=== PATIENT | male | born 1955 | race Caucasian/White ===

== ENCOUNTER 2024-07-04 08:20 | Inpatient (IN) ==
--- NOTE | 2024-07-04 08:48 | Emergency Department Note ---
Impression & Plan Pulmonary embolism, Acute alteration in mental status, Lung mass, Acidosis, lactic ED Provider Note NAME: TARA [id number] SOPHIA AGE: 68 SEX: M : 1955 ARRIVES VIA: Walk-In INFORMANT: Patient, ED PROVIDER(S): Sonu Baez DO CHIEF COMPLAINT: Altered mental status HPI: The patient is a 68-year-old male who presented to the emergency department from [place] for an evaluation of altered mental status. The patient's history is not very clear as he has a history of cognitive impairment. The guards that came with him do not offer much history. We did receive a phone call from [facility]. The paperwork was reviewed and the patient is altered from his baseline. They are concerned because she has had 40 pound weight loss and he is incontinent of bowel and bladder. He does not appear to be taking his medications. They also report a facial droop although it is unclear exactly when this happened. According to the guards there may have been a fall although the patient denies having any fall. He denies having any chest pain or difficulty breathing. He denies having any fever or chills. ROS: See above HPI for pertinent positives & negatives. A total of 10 systems reviewed and were otherwise negative. PAST MEDICAL HISTORY: See Below PAST SURGICAL HISTORY: See Below FAMILY HISTORY: See Below SOCIAL HISTORY: See Below HOME MEDICATIONS: See Below ALLERGIES: See Below VITALS: See Below PHYSICAL EXAMINATION: GENERAL: The patient is awake and alert. He is listless and slow to respond to questioning. EYES: The conjunctivae are clear. The pupils are round and reactive. EARS, NOSE, MOUTH AND THROAT: The nose is without any evidence of any deformity. Mucous membranes are dry. NECK: The neck is nontender and supple. RESPIRATORY: Diminished breath sounds are noted throughout. CARDIOVASCULAR: Regular rate and rhythm noted there no murmurs rubs or gallops normal S1 normal S2. GASTROINTESTINAL: The abdomen is soft. Abdomen is nontender. BACK: No midline tenderness or or step-off noted range of motion in flexion extension as well as rotation no signs of muscle spasm noted MUSCULOSKELETAL/EXTREMITIES: There is no evidence of gross deformity full range of motion is noted in the hips and shoulders. SKIN: There is no obvious evidence of any rash. There are no petechiae, pallor or cyanosis noted. NEUROLOGIC: Patient is awake and oriented to person and place only. Strength was symmetric but diminished. There does appear to be a right-sided facial droop although it is difficult to tell for sure. MEDICAL DECISION MAKING: The patient is a 68-year-old male who presented to the emergency department for an evaluation of altered mental status. The patient does have some degree of underlying dementia. The patient was sent to the emergency department with very little history although we did obtain that the patient's had some degree of weight loss and has been noncompliant with his medications. There was also the guards who thought they heard that the patient may have fallen recently. The patient had multiple laboratory and radiographic studies obtained. He was found to have a large mass on his chest x-ray. He was also found no signs of metastatic disease on CT of the brain. I discussed the patient's laboratory and radiographic studies with him. I discussed his condition with the on-call [facility]. At their request I also discussed the case with oncology as well as neurosurgery. It sounds that the patient may require staging first prior to determining further testing treatment or transfer. He also was found have a pulmonary embolism although I do not feel it would be prudent to start the patient on anticoagulation at this time. His vital signs are stable and anticoagulation may complicate some of the findings on the head CT. Triage Nursing notes reviewed. Prior medical records reviewed Vital Signs: reviewed and remarkable for no significant abnormalities Differential diagnosis: Infection, dehydration, metabolic abnormality, hypo/hyperglycemia, electrolyte disturbance, anemia, hypoxia, cardiac sources, intracerebral event, toxicologic, neurologic, as well as other pathologies. ER treatment provided: See below Diagnostics interpreted by me: ECG: EKG was obtained in the emergency department. My interpretation is sinus tachycardia at 109 bpm. Right bundle branch block pattern was noted. PACs were noted. No previous tracing was available. Cardiac Monitoring: An order was placed for continuous cardiac monitoring. The monitor shows a rate of 86 bpm with sinus rhythm. Laboratory studies: As stated above and show below. Imaging studies: See below. Radiographic imaging was reviewed by myself Consultation(s): I discussed this case with Mamie who is on-call for the [place] [facility] group. I discussed this case with Dr. Dickey who is on-call for oncology. She does recommend that we discussed the case with neurosurgery to determine if they feel the patient requires any neurosurgical intervention. I discussed this case with Dr. Campos who is on for neurosurgery. He does recommend formal tissue diagnosis and then other neuroimaging to determine if this is a radiosensitive tumor or not and that may determine further need for neurosurgery. ED COURSE: Procedures: none Critical Care: I have personally spent greater than 35 minutes of critical care time in the direct management of this patient. This includes bedside care, interpretation of diagnostic studies, and testing, discussion with consultants, patient, and family members, and other required patient management activities. This 35 minutes is in excess of all separately billable procedures. Past Med/Surg History Problem List (Updated 07/04/24 @ 11:30 by Sonu Baez DO) Acidosis, lactic (Acute) Lung mass (Acute) Acute alteration in mental status (Acute) Pulmonary embolism (Acute) Medical History Cognitive impairment Schizoaffective disorder Alcohol use disorder Hyperlipidemia Type 2 diabetes mellitus Social History Smoking Status: Unknown if ever smoked Preferred Language: Mongolian Feels Safe at Home: Yes Allergies Allergies Allergy/AdvReac Type Severity Reaction Status Date / Time fluphenazine Allergy Unknown "On list Unverified 07/04/24 09:24 from facility" Home Meds Home Medications Medication Instructions Recorded Confirmed aspirin 81 mg tablet,delayed 81 mg PO DAILY 07/04/24 07/04/24 release gemfibrozil 600 mg tablet 600 mg PO BID 07/04/24 07/04/24 glipizide 5 mg tablet 5 mg PO HS 07/04/24 07/04/24 lisinopril 5 mg tablet 5 mg PO DAILY 07/04/24 07/04/24 metformin 1,000 mg tablet 1,000 mg PO HS 07/04/24 07/04/24 Results & Data (ED) Vital Signs Vital Signs - 24 hr 07/04/24 08:22 07/04/24 08:52 07/04/24 08:54 Temperature 36.1 C L Temperature Source Temporal Artery Scan Pulse Rate 106 H 103 H Pulse Rate [Apical] Respiratory Rate 17 Respiratory Effort / Characteristics Non-Labored Spontaneous Respiratory Depth Normal Blood Pressure 108/81 Blood Pressure [Right Arm] Blood Pressure Mean 90 Blood Pressure Mean [Right Arm] Pulse Oximetry 98 Oxygen Delivery Method Room Air Room Air Sepsis Recent Fever Within 48 Hours No Sepsis New/Unexplained Change in Mental Status N/A Sepsis Action Taken by Nursing No Action Required 07/04/24 08:54 07/04/24 08:54 07/04/24 08:58 Temperature Temperature Source Pulse Rate Pulse Rate [Apical] 106 H 108 H Respiratory Rate 20 Respiratory Effort / Characteristics Non-Labored Non-Labored Respiratory Depth Normal Normal Blood Pressure Blood Pressure [Right Arm] 106/92 Blood Pressure Mean Blood Pressure Mean [Right Arm] 96 Pulse Oximetry 96 96 Oxygen Delivery Method Room Air Room Air Room Air Sepsis Recent Fever Within 48 Hours Sepsis New/Unexplained Change in Mental Status Sepsis Action Taken by Nursing 07/04/24 09:17 07/04/24 09:30 07/04/24 09:30 Temperature Temperature Source Pulse Rate 98 H Pulse Rate [Apical] 98 H Respiratory Rate 20 17 Respiratory Effort / Characteristics Non-Labored Respiratory Depth Normal Blood Pressure 117/87 Blood Pressure [Right Arm] 129/92 Blood Pressure Mean 101 Blood Pressure Mean [Right Arm] 104 Pulse Oximetry 95 Oxygen Delivery Method Room Air Sepsis Recent Fever Within 48 Hours Sepsis New/Unexplained Change in Mental Status Sepsis Action Taken by Nursing 07/04/24 09:30 07/04/24 09:30 07/04/24 09:30 Temperature Temperature Source Pulse Rate 96 H Pulse Rate [Apical] Respiratory Rate 18 Respiratory Effort / Characteristics Respiratory Depth Blood Pressure 117/87 117/87 117/87 Blood Pressure [Right Arm] Blood Pressure Mean 101 101 101 Blood Pressure Mean [Right Arm] Pulse Oximetry 96 Oxygen Delivery Method Room Air Sepsis Recent Fever Within 48 Hours Sepsis New/Unexplained Change in Mental Status Sepsis Action Taken by Nursing 07/04/24 09:45 07/04/24 10:00 07/04/24 10:15 Temperature Temperature Source Pulse Rate 98 H 99 H 77 Pulse Rate [Apical] Respiratory Rate 18 18 26 H Respiratory Effort / Characteristics Respiratory Depth Blood Pressure 118/101 H 116/91 128/91 Blood Pressure [Right Arm] Blood Pressure Mean 106 101 103 Blood Pressure Mean [Right Arm] Pulse Oximetry 97 96 97 Oxygen Delivery Method Room Air Room Air Room Air Sepsis Recent Fever Within 48 Hours Sepsis New/Unexplained Change in Mental Status Sepsis Action Taken by Nursing 07/04/24 10:30 07/04/24 10:32 07/04/24 10:45 Temperature Temperature Source Pulse Rate 78 Pulse Rate [Apical] 91 H Respiratory Rate 18 Respiratory Effort / Characteristics Non-Labored Non-Labored Respiratory Depth Normal Normal Blood Pressure 133/85 Blood Pressure [Right Arm] 123/91 Blood Pressure Mean 97 Blood Pressure Mean [Right Arm] 101 Pulse Oximetry 95 96 Oxygen Delivery Method Room Air Room Air Sepsis Recent Fever Within 48 Hours Sepsis New/Unexplained Change in Mental Status Sepsis Action Taken by Nursing 07/04/24 11:15 07/04/24 11:30 07/04/24 12:12 Temperature Temperature Source Pulse Rate 79 86 Pulse Rate [Apical] 86 Respiratory Rate 24 18 28 H Respiratory Effort / Characteristics Respiratory Depth Normal Blood Pressure 111/82 119/85 Blood Pressure [Right Arm] 117/84 Blood Pressure Mean 94 88 Blood Pressure Mean [Right Arm] 95 Pulse Oximetry 100 99 94 Oxygen Delivery Method Room Air Room Air Room Air Sepsis Recent Fever Within 48 Hours Sepsis New/Unexplained Change in Mental Status Sepsis Action Taken by Nursing 07/04/24 14:28 Temperature Temperature Source Pulse Rate Pulse Rate [Apical] Respiratory Rate Respiratory Effort / Characteristics Respiratory Depth Blood Pressure Blood Pressure [Right Arm] Blood Pressure Mean Blood Pressure Mean [Right Arm] Pulse Oximetry Oxygen Delivery Method Room Air Sepsis Recent Fever Within 48 Hours Sepsis New/Unexplained Change in Mental Status Sepsis Action Taken by Usp Medications Current Medication List: was personally reviewed by me Laboratory Data Attestation: I reviewed the patient's lab results. 07/04/24 08:41 07/04/24 08:41 Lab Results 07/04/24 07/04/24 07/04/24 Range/Units 08:41 08:50 09:28 WBC 13.24 H (4.8-10.8) K/ul RBC 5.50 (4.70-6.10) M/uL Hgb 14.8 (14.0-18.0) g/dl POC Hgb 15.0 (14.0-18.0) g/dl Hct 45.8 (42.0-52.0) % POC Hct 44 (42-52) % MCV 83.3 (80.0-100.0) fL MCH 26.9 (25.0-34.0) pg MCHC 32.3 (32.0-36.0) g/dL RDW Std Deviation 47.8 H (36.4-46.3) fL RDW Coeff of Angel 16.1 H (11.5-14.5) % Plt Count 485 H (130-400) K/uL MPV 8.3 L (9.4-12.4) fL Immature Gran % (Auto) 0.5 % Neut % (Auto) 72.5 % Lymph % (Auto) 19.9 % [place] % (Auto) 6.3 % Eos % (Auto) 0.5 % Baso % (Auto) 0.3 % Neut # (Auto) 9.60 H (1.40-6.50) K/uL Lymph # (Auto) 2.63 (1.20-3.40) K/uL [place] # (Auto) 0.83 H (0.11-0.59) K/uL Eos # (Auto) 0.07 (0.00-0.50) K/uL Baso # (Auto) 0.04 (0.00-0.20) K/uL Immature Gran # (Auto) 0.07 (0.01-0.20) K/uL PT 11.2 (9.0-12.0) Seconds INR 1.0 (0.9-1.1) APTT 31 (21-31) Seconds PTT Ratio 1.2 VBG pH 7.37 (7.36-7.41) VBG pCO2 39 (38-50) mmHg VBG pO2 24 mmHg VBG HCO3 23 mmol/L VBG O2 Saturation < 60.0 % VBG Base Excess -2.5 mEq/L POC Sodium 139 (135-144) mmol/L Sodium 137 (136-145) mmol/L POC Potassium 4.5 (3.3-5.0) mmol/L Potassium 4.4 (3.5-5.1) mmol/L POC Chloride 108 (101-112) mmol/L Chloride 105 (98-107) mmol/L Carbon Dioxide 22 (21-32) mmol/L POC Total CO2 23 L (24-31) mmol/L Anion Gap 10 (3-11) POC Anion Gap 14.0 L (16-25) mmol/L POC BUN 17 (7-18) mg/dl BUN 17 (6-23) mg/dl Creatinine 0.93 (0.6-1.4) mg/dl POC Creatinine 1.0 (0.6-1.3) mg/dl Est Cr Clr Drug Dosing 71.7 ml/min eGFR 88.89 BUN/Creatinine Ratio 18.3 (10-20) Glucose 208 H (70-99(Fasting)) mg/dl POC Glucose (other) 207 H (70-99) mg/dl Lactate 2.9 H* (0.4-2.0) mmol/L Calcium 12.0 H (8.6-10.3) mg/dl POC Ioniz Calcium Lucian 1.45 H (1.12-1.32) mmol/l Magnesium 2.0 (1.7-2.4) mg/dl Total Bilirubin 0.7 (0.2-1.0) mg/dl Direct Bilirubin 0.1 (0-0.2) mg/dl AST 12 L (13-39) U/L ALT 12 (7-52) U/L Alkaline Phosphatase 147 H (34-104) U/L Troponin I High Sens 11.1 (0-20) pg/ml Total Protein 8.4 H (6.0-8.3) gm/dl Albumin 4.1 (3.4-5.0) gm/dl Procalcitonin 0.05 (0-0.5) ng/ml SARS-CoV-2 (PCR) NEGATIVE (Negative) Influenza Type A (PCR) Negative (Neg) Influenza Type B (PCR) Negative (Neg) RSV (RT-PCR) Negative (Neg) 07/04/24 Range/Units 10:24 WBC (4.8-10.8) K/ul RBC (4.70-6.10) M/uL Hgb (14.0-18.0) g/dl POC Hgb (14.0-18.0) g/dl Hct (42.0-52.0) % POC Hct (42-52) % MCV (80.0-100.0) fL MCH (25.0-34.0) pg MCHC (32.0-36.0) g/dL RDW Std Deviation (36.4-46.3) fL RDW Coeff of Angel (11.5-14.5) % Plt Count (130-400) K/uL MPV (9.4-12.4) fL Immature Gran % (Auto) % Neut % (Auto) % Lymph % (Auto) % [place] % (Auto) % Eos % (Auto) % Baso % (Auto) % Neut # (Auto) (1.40-6.50) K/uL Lymph # (Auto) (1.20-3.40) K/uL [place] # (Auto) (0.11-0.59) K/uL Eos # (Auto) (0.00-0.50) K/uL Baso # (Auto) (0.00-0.20) K/uL Immature Gran # (Auto) (0.01-0.20) K/uL PT (9.0-12.0) Seconds INR (0.9-1.1) APTT (21-31) Seconds PTT Ratio VBG pH (7.36-7.41) VBG pCO2 (38-50) mmHg VBG pO2 mmHg VBG HCO3 mmol/L VBG O2 Saturation % VBG Base Excess mEq/L POC Sodium (135-144) mmol/L Sodium (136-145) mmol/L POC Potassium (3.3-5.0) mmol/L Potassium (3.5-5.1) mmol/L POC Chloride (101-112) mmol/L Chloride (98-107) mmol/L Carbon Dioxide (21-32) mmol/L POC Total CO2 (24-31) mmol/L Anion Gap (3-11) POC Anion Gap (16-25) mmol/L POC BUN (7-18) mg/dl BUN (6-23) mg/dl Creatinine (0.6-1.4) mg/dl POC Creatinine (0.6-1.3) mg/dl Est Cr Clr Drug Dosing ml/min eGFR BUN/Creatinine Ratio (10-20) Glucose (70-99(Fasting)) mg/dl POC Glucose (other) (70-99) mg/dl Lactate 4.2 H* (0.4-2.0) mmol/L Calcium (8.6-10.3) mg/dl POC Ioniz Calcium Lucian (1.12-1.32) mmol/l Magnesium (1.7-2.4) mg/dl Total Bilirubin (0.2-1.0) mg/dl Direct Bilirubin (0-0.2) mg/dl AST (13-39) U/L ALT (7-52) U/L Alkaline Phosphatase (34-104) U/L Troponin I High Sens (0-20) pg/ml Total Protein (6.0-8.3) gm/dl Albumin (3.4-5.0) gm/dl Procalcitonin (0-0.5) ng/ml SARS-CoV-2 (PCR) (Negative) Influenza Type A (PCR) (Neg) Influenza Type B (PCR) (Neg) RSV (RT-PCR) (Neg) Administered Medications Heparin Sodium/Dextrose (Heparin 10549 Unit/500 Ml D5w) 25,000 units in 500 mls @ 16 mls/hr IV .Q24H SHERYL; Protocol Stop: 08/03/24 12:59 Last Admin: 07/04/24 13:49 Dose: 800 units/hr, 16 mls/hr Documented By: EVELIA Co-signed By: Sodium Chloride (Nss) 1,000 mls @ 125 mls/hr IV .Q8H SHERYL Stop: 07/05/24 12:44 Last Admin: 07/04/24 13:49 Dose: 125 mls/hr Documented By: EVELIA Discontinued Medications Doxycycline Hyclate (Doxycycline Hyclate 100 Mg Cap) 100 mg PO ONE STA Stop: 07/04/24 12:59 Last Admin: 07/04/24 13:48 Dose: 100 mg Documented By: EVELIA Heparin Sodium/Dextrose (Heparin Iv Adult Wt-Based Low-Dose *No* Initial Bolus Protocol) 1 each IV ONE STA; Protocol Stop: 07/04/24 12:46 Last Admin: 07/04/24 13:49 Dose: 1 each Documented By: EVELIA Piperacillin Sod/Tazobactam Sod (Zosyn) 4.5 gm in 100 mls @ 200 mls/hr IV ONE STA; Protocol Stop: 07/04/24 13:26 Last Admin: 07/04/24 13:48 Dose: 200 mls/hr Documented By: EVELIA Ioversol (Optiray 320 125ml) 118 ml IV ONCE ONE Stop: 07/04/24 13:40 Last Admin: 07/04/24 13:40 Dose: 118 ml Documented By: CELIA Imaging Data Attestation: I personally reviewed and interpreted this imaging study as follows: My Impression: CT of the chest was obtained in the emergency department. My interpretation is right-sided mass, final report below. CT of the brain was obtained in the emergency department. My interpretation is midline mass which appears to be in the scalp but erodes through the calvarium, final report below. 1 view chest x-ray was obtained in the emergency department. My interpretation is large right sided mass, final report below. CT of the abdomen and pelvis was obtained in the emergency department. My interpretation is no free air or signs of bowel obstruction, final report below. Radiologist's Impression: Cervical Spine CT 07/04/24 08:40 CT cervical spine wo con CLINICAL HISTORY: fall. COMPARISON: None TECHNIQUE: Multiple axial CT images of the cervical spine were obtained without contrast. A dose lowering technique was utilized adhering to the principles of ALARA. FINDINGS: There is diffuse degenerative disc disease. There is grade 1 anterolisthesis of C4 on 5. No fracture seen. There is partially visualized enlarged adenopathy at the upper mediastinum. IMPRESSION: 1. No cervical spine fracture seen. 2. Partially visualized enlarged adenopathy at the upper mediastinum suspicious for malignancy. CT scan of the chest recommended. ACT 112: Positive. There are findings on this exam that require communication between the performing entity and the patient following Patient Test Result Information Act [place] Act 112) guidelines. The above report was generated using voice recognition software. It may contain grammatical, syntax or spelling errors. Electronically signed by: Brooks Garvin M.D. 07/04/2024 9:34 AM Chest X-Ray 07/04/24 08:40 XR chest 1V portable CLINICAL HISTORY: Sepsis COMPARISON STUDY: None FINDINGS: Heart size and pulmonary vasculature are normal. There is a 8 cm masslike opacity at the right upper lung extending to the mediastinum. Inspiration is shallow. There is mild blunting of the right costophrenic angle. No pneumothorax. IMPRESSION: 1. Right upper lung mass versus dense focal pneumonia. Follow-up chest CT recommended. 2. Possible small right pleural effusion and consolidation at the right lung base. ACT 112: Positive. There are findings on this exam that require communication between the performing entity and the patient following Patient Test Result Information Act [place] Act 112) guidelines. Electronically signed by: Brooks Garvin M.D. 07/04/2024 9:[address] 07/04/24 08:40 CT head/brain wo con CLINICAL HISTORY: 68 years-old Male with fall. Acute head trauma status post fall TECHNIQUE: Multiple axial CT images of the head were obtained without contrast. A dose lowering technique was utilized adhering to the principles of ALARA. CT DOSE: 1104.13 mGy.cm COMPARISON: None. FINDINGS: No acute intracranial hemorrhage, midline shift, intracranial mass, hydrocephalus, territorial ischemia or abnormal extra-axial collection. Involutional changes with white matter hypodensities suggestive of chronic microvascular ischemic disease. Erosive soft tissue attenuating 2.7 x 2.2 cm mass involves the midline of the posterior parietal calvarium with complete erosion of the skull. The anterior margin of this mass abuts the sagittal sinus and dural margins adjacent to the posterior parietal lobes. The paranasal sinuses, mastoid air cells, and middle ear cavities are clear. IMPRESSION: 1. No acute intracranial abnormality. 2. 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 Follow-up with oncology is needed. ACT 112: Positive. There are findings on this exam that require communication between the performing entity and the patient following Patient Test Result Information Act ([place] Act 112) guidelines. The above report was generated using voice recognition software. It may contain grammatical, syntax or spelling errors. Electronically signed by: Adarsh Bradley M.D. 07/04/2024 9:18 AM Abdomen/Pelvis CT 07/04/24 10:[address] WITH IV CONTRAST HISTORY: Weight loss. Altered. lung mass TECHNIQUE: Multiaxial CT images of the abdomen and pelvis were performed following the IV administration of 90 cc of Optiray, A dose lowering technique was utilized adhering to the principles of ALARA. COMPARISON STUDY: None FINDINGS: ABDOMEN: There is motion artifact. Liver, gallbladder, spleen, pancreas, and left adrenal gland are unremarkable. There is a 1.5 cm nonspecific nodule at the right adrenal gland. Kidneys show no hydronephrosis. There are scattered atherosclerotic calcifications. No abdominal aortic aneurysm. Pelvis: Prostate is enlarged. Urinary bladder is moderately distended. The rectum is distended with stool. Otherwise there is moderate retained stool. There is mild sigmoid diverticulosis. No acute diverticulitis. No bowel inflammation or obstruction. No free fluid or free air. No enlarged adenopathy. Osseous structures: There is lower lumbar degenerative disc disease. No acute osseous findings. IMPRESSION: 1. Please see chest CT report of the same day. 2. Small nonspecific right adrenal nodule. No other evidence of metastatic disease seen at the abdomen or pelvis. 3. No acute findings seen. Otherwise as described. ACT 112: Negative or not required by law. The above report was generated using voice recognition software. It may contain grammatical, syntax or spelling errors. Electronically signed by: Brooks Garvin M.D. 07/04/2024 10:[address] 07/04/24 10:[address] WITH CONTRAST CT DOSE: 1439.66 mGy.cm HISTORY: Acute shortness of breath lung mass TECHNIQUE: Multiaxial CT images of the chest were performed following the IV administration of 94 cc of Optiray. A dose lowering technique was utilized adhering to the principles of ALARA. COMPARISON: Chest radiograph and CT abdomen and pelvis studies of same day FINDINGS: Unremarkable thyroid. Moderate cardiomegaly with trace pericardial effusion. Moderate coronary artery calcifications.r ectasia of ascending thoracic aorta measures up to 3.9 cm. Right upper lobe pulmonary emboli involving the right upper lobar, segmental and subsegmental branches, image 85 series 6.r metastatic lymphadenopathy of the chest includes a 4.4 x 3.6 cm prevascular node on image 60 a subcarinal 2.3 x 4.0 cm lymph node image 105 as well as right hilar lymphadenopathy. Subcentimeter left hilar lymph nodes. Moderate supraclavicular lymphadenopathy. No pathologically enlarged axillary lymph nodes. There is no pneumothorax or pleural effusion. Moderate to severe pulmonary emphysema. Masslike consolidation of the right upper lobe measures 5.2 x 6.1 x 6.5 cm occluding portions of the adjacent right upper lobe bronchi. This contains central cavitation versus pneumatized lung. Numerous nodular foci of the bilateral lungs including several solid and cavitary nodules measuring 2 cm in the superior segment right lower lobe on image 94 with 10 mm solid nodule left lower lobe on image 107. Satellite groundglass and nodular opacities in the right upper lobe adjacent to the primary mass. 1.6 cm hypodense right adrenal lesion. Small hiatal hernia. CT abdomen and pelvis dictated separately. Unremarkable soft tissues. No destructive bone lesions identified. IMPRESSION: 1. Emphysema with confirmation of the right upper lobe mass suggestive of primary bronchogenic carcinoma measuring up to 6.5 cm. This occludes the adjacent right upper lobe bronchi and encases the adjacent pulmonary vessels demonstrating probable mediastinal involvement. 2. Right upper lobe pulmonary emboli, possibly secondary to tumor thrombus 3. Metastatic mediastinal, right hilar and supraclavicular lymph nodes. 4. Numerous bilateral metastatic pulmonary nodules, many of which demonstrate central cavitation. 5. CT abdomen and pelvis dictated separately. ACT 112: Negative or not required by law. Electronically signed by: Adarsh Bradley M.D. 07/04/2024 11:05 AM Head CTA 07/04/24 12:46 CT angio head wo/w CLINICAL HISTORY: Mass on head CT COMPARISON STUDY: Noncontrast CT earlier today FINDINGS: There are atherosclerotic calcifications distally at the internal carotid arteries. No significant narrowing or occlusion seen at the distal internal carotid or vertebral arteries. The basilar artery is widely patent. The anterior, middle, and posterior cerebral arteries are patent bilaterally. There is a 3 cm mass at the posterior parietal calvarium at the midline which causes mass effect on the posterior aspect of the sagittal sinus and mild focal narrowing without occlusion. Otherwise the cerebral venous sinuses opacify normally. IMPRESSION: 1. No significant arterial narrowing or occlusion seen at the brain. 2. Posterior parietal calvarial mass at the midline is again seen. The mass causes mass effect and narrowing of the adjacent posterior aspect of the sagittal sinus without occlusion. ACT 112: Negative or not required by law. Electronically signed by: Brooks Garvin M.D. 07/04/2024 1:56 PM Discharge Plan Visit Data Chief Complaint: Stroke/CVA Symptoms Stated Complaint: POSSIBLE STROKE, FALL ED Provider: Sonu Baez Discharge Problem: Pulmonary embolism, Acute alteration in mental status, Lung mass, Acidosis, lactic Patient Disposition: Being Evaluated by Hospitalist Discharge Instructions Interventions: ED Discharge Assessment Last Done: 07/04/24 14:28 Forms Stand Alone Forms: [facility] [employer] Prescriptions Prescriptions: No Action aspirin [Aspir-81] 81 mg Tablet,Delayed Release (Dr/Ec) 81 mg PO DAILY gemfibrozil 600 mg Tablet 600 mg PO BID metformin 1,000 mg Tablet 1,000 mg PO HS lisinopril 5 mg Tablet 5 mg PO DAILY glipizide 5 mg Tablet 5 mg PO HS Referrals Referrals: Tatyana STEPHENS [Primary Care Provider] -
[2024-07-04 09:01] LABS: Basophils # (auto) 0.04 K/uL (0.00-0.20); Basophils % (auto) 0.3 %; Eosinophils # (auto) 0.07 K/uL (0.00-0.50); Eosinophils % (auto) 0.5 %; Hematocrit (blood only) 45.8 % (42.0-52.0); Hemoglobin 14.8 g/dl (14.0-18.0); Immature Granulocytes # (auto) 0.07 K/uL (0.01-0.20); Immature Granulocytes % (auto) 0.5 %; Lymphocytes # (auto) 2.63 K/uL (1.20-3.40); Lymphocytes % (auto) 19.9 %; Mean Corpuscular Hemoglobin 26.9 pg (25.0-34.0); Mean Corpuscular Hgb Conc 32.3 g/dL (32.0-36.0); Mean Corpuscular Volume 83.3 fL (80.0-100.0); Mean Platelet Volume 8.3 fL (9.4-12.4); Monocytes # (auto) 0.83 K/uL (0.11-0.59); Monocytes % (auto) 6.3 %; Neutrophils % (auto) 72.5 %; Platelet Count 485 K/uL (130-400); RDW Coefficient of Variation 16.1 % (11.5-14.5); RDW Standard Deviation 47.8 fL (36.4-46.3); White Blood Count 13.24 K/ul (4.8-10.8)
[2024-07-04 09:02] LABS: iSTAT Ionized Calcium 1.45 mmol/l (1.12-1.32); iSTAT Potassium 4.5 mmol/L (3.3-5.0)
[2024-07-04 09:13] LABS: Partial Thromboplastin Ratio 1.2; Partial Thromboplastin Time 31 Seconds (21-31); Prothrombin Time 11.2 Seconds (9.0-12.0)
--- NOTE | 2024-07-04 09:21 | CT Scan Report ---
CT head/brain wo con CLINICAL HISTORY: 68 years-old Male with fall. Acute head trauma status post fall TECHNIQUE: Multiple axial CT images of the head were obtained without contrast. A dose lowering tech nique was utilized adhering to the principles of ALARA. CT DOSE: 1104.13 mGy.cm COMPARISON: None. FINDINGS: No acute intracranial hemorrhage, midline shift, intracranial mass, hydrocephalus, territorial ischem ia or abnormal extra-axial collection. Involutional changes with white matter hypodensities suggestiv e of chronic microvascular ischemic disease. Erosive soft tissue attenuating 2.7 x 2.2 cm mass involves the midline of the posterior parietal calv arium with complete erosion of the skull. The anterior margin of this mass abuts the sagittal sinus a nd dural margins adjacent to the posterior parietal lobes. The paranasal sinuses, mastoid air cells, and middle ear cavities are clear. IMPRESSION: 1. No acute intracranial abnormality. 2. 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 Follow-up with oncology is needed. ACT 112: Positive. There are findings on this exam that require communication between the performing entity and the patient following Patient Test Result Information Act ([place] Act 112) guidelines. The above report was generated using voice recognition software. It may contain grammatical, syntax o r spelling errors. Electronically signed by: Adarsh Bradley M.D. 07/04/2024 9:18 AM
--- NOTE | 2024-07-04 09:31 | XRay Report ---
XR chest 1V portable CLINICAL HISTORY: Sepsis COMPARISON STUDY: None FINDINGS: Heart size and pulmonary vasculature are normal. There is a 8 cm masslike opacity at the ri ght upper lung extending to the mediastinum. Inspiration is shallow. There is mild blunting of the ri ght costophrenic angle. No pneumothorax. IMPRESSION: 1. Right upper lung mass versus dense focal pneumonia. Follow-up chest CT recommended. 2. Possible small right pleural effusion and consolidation at the right lung base. ACT 112: Positive. There are findings on this exam that require communication between the performing entity and the patient following Patient Test Result Information Act [place] Act 112) guidelines. Electronically signed by: Brooks Garvin M.D. 07/04/2024 9:30 AM
[2024-07-04 09:35] LABS: Base Excess VBG -2.5 mEq/L; HCO3 VBG 23 mmol/L; Oxygen Saturation VBG < 60.0 %; PCO2 VBG 39 mmHg (38-50); PO2 VBG 24 mmHg; pH VBG 7.37 (7.36-7.41)
--- NOTE | 2024-07-04 09:37 | CT Scan Report ---
CT cervical spine wo con CLINICAL HISTORY: fall. COMPARISON: None TECHNIQUE: Multiple axial CT images of the cervical spine were obtained without contrast. A dose low ering technique was utilized adhering to the principles of ALARA. FINDINGS: There is diffuse degenerative disc disease. There is grade 1 anterolisthesis of C4 on 5. No fracture seen. There is partially visualized enlarged adenopathy at the upper mediastinum. IMPRESSION: 1. No cervical spine fracture seen. 2. Partially visualized enlarged adenopathy at the upper mediastinum suspicious for malignancy. CT sc an of the chest recommended. ACT 112: Positive. There are findings on this exam that require communication between the performing entity and the patient following Patient Test Result Information Act [place] Act 112) guidelines. The above report was generated using voice recognition software. It may contain grammatical, syntax o r spelling errors. Electronically signed by: Brooks Garvin M.D. 07/04/2024 9:34 AM
[2024-07-04 10:14] LABS: Influenza A virus by PCR Negative (Neg); Influenza B virus by PCR Negative (Neg); RSV by PCR Negative (Neg); SARS CoV2 RNA(COVID-19) Ceph NEGATIVE (Negative)
[2024-07-04 10:45] LABS: Albumin Level 4.1 gm/dl (3.4-5.0); BUN Creatinine Ratio 18.3 (10-20); Bilirubin Direct 0.1 mg/dl (0-0.2); Bilirubin,Total 0.7 mg/dl (0.2-1.0); Creatinine Clr Calc Pharmacy 71.7 ml/min; Potassium 4.4 mmol/L (3.5-5.1); Total Protein 8.4 gm/dl (6.0-8.3)
[2024-07-04 10:46] LABS: Troponin I High Sensitivity 11.1 pg/ml (0-20)
--- NOTE | 2024-07-04 10:54 | CT Scan Report ---
ABDOMEN AND PELVIS CT WITH IV CONTRAST HISTORY: Weight loss. Altered. lung mass TECHNIQUE: Multiaxial CT images of the abdomen and pelvis were performed following the IV administrat ion of 90 cc of Optiray, A dose lowering technique was utilized adhering to the principles of ALARA. COMPARISON STUDY: None FINDINGS: ABDOMEN: There is motion artifact. Liver, gallbladder, spleen, pancreas, and left adrenal gland are u nremarkable. There is a 1.5 cm nonspecific nodule at the right adrenal gland. Kidneys show no hydrone phrosis. There are scattered atherosclerotic calcifications. No abdominal aortic aneurysm. Pelvis: Prostate is enlarged. Urinary bladder is moderately distended. The rectum is distended with s tool. Otherwise there is moderate retained stool. There is mild sigmoid diverticulosis. No acute dive rticulitis. No bowel inflammation or obstruction. No free fluid or free air. No enlarged adenopathy. Osseous structures: There is lower lumbar degenerative disc disease. No acute osseous findings. IMPRESSION: 1. Please see chest CT report of the same day. 2. Small nonspecific right adrenal nodule. No other evidence of metastatic disease seen at the abdome n or pelvis. 3. No acute findings seen. Otherwise as described. ACT 112: Negative or not required by law. The above report was generated using voice recognition software. It may contain grammatical, syntax o r spelling errors. Electronically signed by: Brooks Garvin M.D. 07/04/2024 10:52 AM
--- NOTE | 2024-07-04 11:06 | CT Scan Report ---
CHEST CT WITH CONTRAST CT DOSE: 1439.66 mGy.cm HISTORY: Acute shortness of breath lung mass TECHNIQUE: Multiaxial CT images of the chest were performed following the IV administration of 94 cc of Optiray. A dose lowering technique was utilized adhering to the principles of ALARA. COMPARISON: Chest radiograph and CT abdomen and pelvis studies of same day FINDINGS: Unremarkable thyroid. Moderate cardiomegaly with trace pericardial effusion. Moderate coron percy artery calcifications.r ectasia of ascending thoracic aorta measures up to 3.9 cm. Right upper lo be pulmonary emboli involving the right upper lobar, segmental and subsegmental branches, image 85 se mykel 6.r metastatic lymphadenopathy of the chest includes a 4.4 x 3.6 cm prevascular node on image 60 a subcarinal 2.3 x 4.0 cm lymph node image 105 as well as right hilar lymphadenopathy. Subcentimeter left hilar lymph nodes. Moderate supraclavicular lymphadenopathy. No pathologically enlarged axillar y lymph nodes. There is no pneumothorax or pleural effusion. Moderate to severe pulmonary emphysema. Masslike consol idation of the right upper lobe measures 5.2 x 6.1 x 6.5 cm occluding portions of the adjacent right upper lobe bronchi. This contains central cavitation versus pneumatized lung. Numerous nodular foci o f the bilateral lungs including several solid and cavitary nodules measuring 2 cm in the superior seg ment right lower lobe on image 94 with 10 mm solid nodule left lower lobe on image 107. Satellite ceci undglass and nodular opacities in the right upper lobe adjacent to the primary mass. 1.6 cm hypodense right adrenal lesion. Small hiatal hernia. CT abdomen and pelvis dictated separately . Unremarkable soft tissues. No destructive bone lesions identified. IMPRESSION: 1. Emphysema with confirmation of the right upper lobe mass suggestive of primary bronchogenic carcin bertha measuring up to 6.5 cm. This occludes the adjacent right upper lobe bronchi and encases the adjac ent pulmonary vessels demonstrating probable mediastinal involvement. 2. Right upper lobe pulmonary emboli, possibly secondary to tumor thrombus 3. Metastatic mediastinal, right hilar and supraclavicular lymph nodes. 4. Numerous bilateral metastatic pulmonary nodules, many of which demonstrate central cavitation. 5. CT abdomen and pelvis dictated separately. ACT 112: Negative or not required by law. Electronically signed by: Adarsh Bradley M.D. 07/04/2024 11:05 AM
--- NOTE | 2024-07-04 12:27 | Electrocardiogram Report ---
Test Reason : Blood Pressure : */* mmHG Vent. Rate : 109 BPM Atrial Rate : 109 BPM P-R Int : 158 ms QRS Dur : 138 ms QT Int : 350 ms P-R-T Axes : 52 -58 90 degrees QTcB Int : 471 ms Sinus tachycardia with Premature atrial complexes Right bundle branch block Left anterior fascicular block Bifascicular block Left ventricular hypertrophy with repolarization abnormality ( R in aVL ) Cannot rule out Septal infarct , age undetermined Abnormal ECG No previous ECGs available Confirmed by Sonu Dale ([id number]) on 07/04/2024 12:27:03 PM Referred By: [facility] Confirmed By: Sonu Dale
--- NOTE | 2024-07-04 12:30 | History & Physical Report ---
Date of Service July 04, 2024 Assessment & Plan (1) Lung mass: (2) Acute alteration in mental status: Plan: Daren Lopez is a 68y/o M inmate from [facility] with PMHx significant for cognitive impairment in the setting of prior alcohol use disorder, DM type II, HLD, HTN and schizoaffective bipolar disorder who was brought in today with corrections staff due to concerns regarding AMS, weight loss and questionable right-sided facial drooping. Unable to elicit any meaningful history from the patient due to his underlying cognitive impairment. He is alert and oriented only to self. History therefore obtained from documentation provided by [facility]. Found to have suspected primary bronchogenic carcinoma with imaging suggestive of extensive metastasis. Head CT: 1. No acute intracranial abnormality. 2. 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 Cervical Spine CT: 1. No cervical spine fracture seen. 2. Partially visualized enlarged adenopathy at the upper mediastinum suspicious for malignancy. Chest CT: 1. Emphysema with confirmation of the right upper lobe mass suggestive of primary bronchogenic carcinoma measuring up to 6.5 cm. This occludes the adjacent right upper lobe bronchi and encases the adjacent pulmonary vessels demonstrating probable mediastinal involvement. 2. Right upper lobe pulmonary emboli, possibly secondary to tumor thrombus 3. Metastatic mediastinal, right hilar and supraclavicular lymph nodes. 4. Numerous bilateral metastatic pulmonary nodules, many of which demonstrate central cavitation. CTAP: 1. No acute findings seen. 2. Small nonspecific right adrenal nodule. No other evidence of metastatic disease seen in the abdomen or pelvis. Dr. Baez discussed patient's case with the on-call [facility] neurosurgeon at [facility]. Recommended to obtain brain MRI and head CTA to further assess degree at metastatic disease. If determined he is a candidate for radiation, then could consider surgical intervention however overall prognosis is quite poor given the severity of disease progression. Head CTA: 1. No significant arterial narrowing or occlusion seen at the brain. 2. Posterior parietal calvarial mass at the midline is again seen. The mass causes mass effect and narrowing of the adjacent posterior aspect of the sagittal sinus without occlusion. Appreciate radiation oncology and hematology/oncology consults. No acute role for radiation therapy. Complete staging workup including obtaining tissue with options including bronchoscopy with EBUS FNA. Additional consideration for biopsy of supraclavicular lymph node. Palliative radiation therapy may have role in future depending on results of studies. Suspect lactic acidosis secondary to above disease burden. Empirically on IV Zosyn and oral doxycycline for possible underlying PNA. Was having some dysphagia earlier so will consult speech therapy. May need to transition to IV doxycycline. Patient with lack of decisional making capacity. Palliative care involvement to discuss goals of care with patient/next of kin given extensive nature of disease - need to determine next of kin. (3) Pulmonary emboli: Plan: Noted on chest CT as per above. Discussed with Dr. Dickey via TT. Low weight IV heparin on board. (4) Hypercalcemia: Plan: Serum calcium 12. SQ calcitonin ordered x 2 doses and will monitor repeat calcium level in AM. Manage PRN. DVT Prophylaxis: IV heparin as per above. Code Status: FULL CODE - For now pending further discussion with next of kin (if able). PCP: [facility] Disposition: Admit to PCU for further inpatient evaluation and management. Patient seen in collaboration with Dr. Brower. Please see addendum. I spent a total of 60 minutes coordinating, documenting, and providing care for this patient excluding time spent in the performance of separately billed services or time spent by another provider/QHP. This included personally reviewing all current laboratories and imaging studies, medical reconciliation, outpatient chart review and discussion with specialists. This chart was completed in part utilizing Speech Voice Recognition Software. Grammatical errors, random word insertions, pronoun errors, and incomplete sentences are an occasional consequence of this system due to software limitatio ns, ambient noise, and hardware issues. Any formal questions or concerns about the content, text, or information contained within the body of this dictation should be directly addressed to the provider for clarification. History of Present Illness Chief Complaint: "He is not acting like his normal self." Significant Weight Loss, Possible R-Sided Facial Droop Primary Care Provider: [facility] Daren Lopez is a 68y/o M inmate from [facility] with PMHx significant for cognitive impairment in the setting of prior alcohol use disorder, DM type II, HLD, HTN and schizoaffective bipolar disorder who was brought in today with corrections staff due to concerns regarding AMS, weight loss and questionable right-sided facial drooping. Unable to elicit any meaningful history from the patient due to his underlying cognitive impairment. He is alert and oriented only to self. History therefore obtained from documentation provided by [facility] and discussion with ED provider. Patient with altered mental status from baseline and reportedly not "acting like himself." Records show patient has not been eating or drinking well lately with approximately loss of about 40lbs over the past few months. Also noted to have with bowel and bladder incontinence. Having some difficulty following questions and has been found walking around aimlessly in his housing unit. Has been refusing his medications and lab draws. His gait also appears to be "out of the norm" per records. No recently recorded falls or trauma. Also was thought to have a slight right-sided facial droop however unsure of the chronicity regarding this. Allergies Allergy/AdvReac Type Severity Reaction Status Date / Time fluphenazine Allergy Unknown "On list Unverified 07/04/24 09:24 from facility" Home Medications Medication Instructions Recorded Confirmed Type aspirin 81 mg tablet,delayed 81 mg PO DAILY 07/04/24 07/04/24 History release gemfibrozil 600 mg tablet 600 mg PO BID 07/04/24 07/04/24 History glipizide 5 mg tablet 5 mg PO HS 07/04/24 07/04/24 History lisinopril 5 mg tablet 5 mg PO DAILY 07/04/24 07/04/24 History metformin 1,000 mg tablet 1,000 mg PO HS 07/04/24 07/04/24 History Past Med/Surg History Problem List (Updated 07/04/24 @ 20:21 by Mamie Walter PA-C) Hypercalcemia Pulmonary emboli Acidosis, lactic (Acute) Lung mass (Acute) Acute alteration in mental status (Acute) Pulmonary embolism (Acute) Medical History (Updated 07/04/24 @ 20:21 by Mamie Walter PA-C) Cognitive impairment Schizoaffective disorder Alcohol use disorder Hyperlipidemia Type 2 diabetes mellitus Social History Smoking Status: Unknown if ever smoked Hx Alcohol Use: No Hx Substance Use: No Preferred Language: Welsh Communication Ability: Effective Riprap Placer Required: No Beliefs That Will Affect Care: None Current Living Situation: Other Current Living Situation Comment: [facility] inmate Feels Safe at Home: Declines to Answer Review of Systems Review of Systems: Difficult to obtain due to patient's overall cognitive status however he denies having any SOB, chest pain or headache. Physical Exam Physical Exam: Please refer to Dr. Brower's addendum for physical examination findings. Results & Data Results & Data Vital Signs (Past 12 Hours) Vital Signs Temp Pulse Pulse Resp BP BP Pulse Ox 07/04/24 12:12 86 28 H 117/84 94 07/04/24 11:30 86 18 119/85 99 07/04/24 11:15 79 24 111/82 100 07/04/24 10:45 78 133/85 96 07/04/24 10:30 91 H 18 123/91 95 07/04/24 10:15 77 26 H 128/91 97 07/04/24 10:00 99 H 18 116/91 96 07/04/24 09:45 98 H 18 118/101 H 97 07/04/24 09:30 96 H 18 117/87 96 07/04/24 09:30 117/87 07/04/24 09:30 117/87 07/04/24 09:30 117/87 07/04/24 09:30 98 H 17 07/04/24 09:17 98 H 20 129/92 95 07/04/24 08:58 108 H 96 07/04/24 08:54 07/04/24 08:54 106 H 20 106/92 96 07/04/24 08:54 07/04/24 08:52 103 H 07/04/24 08:22 36.1 C L 106 H 17 108/81 98 O2 Del Method 07/04/24 12:12 Room Air 07/04/24 11:30 Room Air 07/04/24 11:15 Room Air 07/04/24 10:45 Room Air 07/04/24 10:30 Room Air 07/04/24 10:15 Room Air 07/04/24 10:00 Room Air 07/04/24 09:45 Room Air 07/04/24 09:30 Room Air 07/04/24 09:30 07/04/24 09:30 07/04/24 09:30 07/04/24 09:30 07/04/24 09:17 Room Air 07/04/24 08:58 Room Air 07/04/24 08:54 Room Air 07/04/24 08:54 Room Air 07/04/24 08:54 Room Air 07/04/24 08:52 07/04/24 08:22 Room Air Laboratory Results Short CBC 07/04/24 Range/Units 08:41 WBC 13.24 H (4.8-10.8) K/ul Hgb 14.8 (14.0-18.0) g/dl Hct 45.8 (42.0-52.0) % Plt Count 485 H (130-400) K/uL BMP 07/04/24 08:41 Sodium 137 Potassium 4.4 Chloride 105 Carbon Dioxide 22 BUN 17 Creatinine 0.93 Glucose 208 H Calcium 12.0 H Liver Function 07/04/24 Range/Units 08:41 Total Bilirubin 0.7 (0.2-1.0) mg/dl Direct Bilirubin 0.1 (0-0.2) mg/dl AST 12 L (13-39) U/L ALT 12 (7-52) U/L Alkaline Phosphatase 147 H (34-104) U/L Albumin 4.1 (3.4-5.0) gm/dl Diagnostic Findings Cervical Spine CT 07/04/24 08:40 CT cervical spine wo con CLINICAL HISTORY: fall. COMPARISON: None TECHNIQUE: Multiple axial CT images of the cervical spine were obtained without contrast. A dose lowering technique was utilized adhering to the principles of ALARA. FINDINGS: There is diffuse degenerative disc disease. There is grade 1 anterolisthesis of C4 on 5. No fracture seen. There is partially visualized enlarged adenopathy at the upper mediastinum. IMPRESSION: 1. No cervical spine fracture seen. 2. Partially visualized enlarged adenopathy at the upper mediastinum suspicious for malignancy. CT scan of the chest recommended. ACT 112: Positive. There are findings on this exam that require communication b etween the performing entity and the patient following Patient Test Result Information Act [place] Act 112) guidelines. The above report was generated using voice recognition software. It may contain grammatical, syntax or spelling errors. Electronically signed by: Brooks Garvin M.D. 07/04/2024 9:34 AM Chest X-Ray 07/04/24 08:40 XR chest 1V portable CLINICAL HISTORY: Sepsis COMPARISON STUDY: None FINDINGS: Heart size and pulmonary vasculature are normal. There is a 8 cm masslike opacity at the right upper lung extending to the mediastinum. Inspirati on is shallow. There is mild blunting of the right costophrenic angle. No pneumothorax. IMPRESSION: 1. Right upper lung mass versus dense focal pneumonia. Follow-up chest CT recommended. 2. Possible small right pleural effusion and consolidation at the right lung base. ACT 112: Positive. There are findings on this exam that require communication between the performing entity and the patient following Patient Test Result Information Act [place] Act 112) guidelines. Electronically signed by: Brooks Garvin M.D. 07/04/2024 9:[address] 07/04/24 08:40 CT head/brain wo con CLINICAL HISTORY: 68 years-old Male with fall. Acute head trauma status post fall TECHNIQUE: Multiple axial CT images of the head were obtained without contrast. A dose lowering technique was utilized adhering to the principles of ALARA. CT DOSE: 1104.13 mGy.cm COMPARISON: None. FINDINGS: No acute intracranial hemorrhage, midline shift, intracranial mass, hy drocephalus, territorial ischemia or abnormal extra-axial collection. Involutional changes with white matter hypodensities suggestive of chronic microvascular ischemic disease. Erosive soft tissue attenuating 2.7 x 2.2 cm mass involves the midline of the posterior parietal calvarium with complete erosion of the skull. The anterior margin of this mass abuts the sagittal sinus and dural margins adjacent to the posterior parietal lobes. The paranasal sinuses, mastoid air cells, and middle ear cavities are clear. IMPRESSION: 1. No acute intracranial abnormality. 2. 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 Follow-up with oncology is needed. ACT 112: Positive. There are findings on this exam that require communication between the performing entity and the patient following Patient Test Result Information Act ([place] Act 112) guidelines. The above report was generated using voice recognition software. It may contain grammatical, syntax or spelling errors. Electronically signed by: Adarsh Bradley M.D. 07/04/2024 9:18 AM Abdomen/Pelvis CT 07/04/24 10:[address] WITH IV CONTRAST HISTORY: Weight loss. Altered. lung mass TECHNIQUE: Multiaxial CT images of the abdomen and pelvis were performed following the IV administration of 90 cc of Optiray, A dose lowering technique was utilized adhering to the principles of ALARA. COMPARISON STUDY: None FINDINGS: ABDOMEN: There is motion artifact. Liver, gallbladder, spleen, pancreas, and left adrenal gland are unremarkable. There is a 1.5 cm nonspecific nodule at the right adrenal gland. Kidneys show no hydronephrosis. There are scattered atherosclerotic calcifications. No abdominal aortic aneurysm. Pelvis: Prostate is enlarged. Urinary bladder is moderately distended. The rectum is distended with stool. Otherwise there is moderate retained stool. There is mild sigmoid diverticulosis. No acute diverticulitis. No bowel inflammation or obstruction. No free fluid or free air. No enlarged adenopathy. Osseous structures: There is lower lumbar degenerative disc disease. No acute osseous findings. IMPRESSION: 1. Please see chest CT report of the same day. 2. Small nonspecific right adrenal nodule. No other evidence of metastatic disease seen at the abdomen or pelvis. 3. No acute findings seen. Otherwise as described. ACT 112: Negative or not required by law. The above report was generated using voice recognition software. It may contain grammatical, syntax or spelling errors. Electronically signed by: Brooks Garvin M.D. 07/04/2024 10:[address] 07/04/24 10:[address] WITH CONTR[address] CT DOSE: 1439.66 mGy.cm HISTORY: Acute shortness of breath lung mass TECHNIQUE: Multiaxial CT images of the chest were performed following the IV administration of 94 cc of Optiray. A dose lowering technique was utilized adhering to the principles of ALARA. COMPARISON: Chest radiograph and CT abdomen and pelvis studies of same day FINDINGS: Unremarkable thyroid. Moderate cardiomegaly with trace pericardial ef fusion. Moderate coronary artery calcifications.r ectasia of ascending thoracic aorta measures up to 3.9 cm. Right upper lobe pulmonary emboli involving the right upper lobar, segmental and subsegmental branches, image 85 series 6.r metastatic lymphadenopathy of the chest includes a 4.4 x 3.6 cm prevascular node on image 60 a subcarinal 2.3 x 4.0 cm lymph node image 105 as well as right hilar lymphadenopathy. Subcentimeter left hilar lymph nodes. Moderate supraclavicular lymphadenopathy. No pathologically enlarged axillary lymph nodes. There is no pneumothorax or pleural effusion. Moderate to severe pulmonary emphysema. Masslike consolidation of the right upper lobe measures 5.2 x 6.1 x 6.5 cm occluding portions of the adjacent right upper lobe bronchi. This contains central cavitation versus pneumatized lung. Numerous nodular foci of the bilateral lungs including several solid and cavitary nodules measuring 2 cm in the superior segment right lower lobe on image 94 with 10 mm solid nodule left lower lobe on image 107. Satellite groundglass and nodular opacities in the right upper lobe adjacent to the primary mass. 1.6 cm hypodense right adrenal lesion. Small hiatal hernia. CT abdomen and pelvis dictated separately. Unremarkable soft tissues. No destructive bone lesions identified. IMPRESSION: 1. Emphysema with confirmation of the right upper lobe mass suggestive of eliot ramila bronchogenic carcinoma measuring up to 6.5 cm. This occludes the adjacent right upper lobe bronchi and encases the adjacent pulmonary vessels demonstrating probable mediastinal involvement. 2. Right upper lobe pulmonary emboli, possibly secondary to tumor thrombus 3. Metastatic mediastinal, right hilar and supraclavicular lymph nodes. 4. Numerous bilateral metastatic pulmonary nodules, many of which demonstrate central cavitation. 5. CT abdomen and pelvis dictated separately. ACT 112: Negative or not required by law. Electronically signed by: Adarsh Bradley M.D. 07/04/2024 11:05 AM Head CTA 07/04/24 12:46 CT angio head wo/w CLINICAL HISTORY: Mass on head CT COMPARISON STUDY: Noncontrast CT earlier today FINDINGS: There are atherosclerotic calcifications distally at the internal carotid arteries. No significant narrowing or occlusion seen at the distal internal carotid or vertebral arteries. The basilar artery is widely patent. The anterior, middle, and posterior cerebral arteries are patent bilaterally. There is a 3 cm mass at the posterior parietal calvarium at the midline which causes mass effect on the posterior aspect of the sagittal sinus and mild focal narrowing without occlusion. Otherwise the cerebral venous sinuses opacify normally. IMPRESSION: 1. No significant arterial narrowing or occlusion seen at the brain. 2. Posterior parietal calvarial mass at the midline is again seen. The mass causes mass effect and narrowing of the adjacent posterior aspect of the sagittal sinus without occlusion. ACT 112: Negative or not required by law. Electronically signed by: Brooks Garvin M.D. 07/04/2024 1:56 PM Medications Administered Heparin Sodium/Dextrose (Heparin 14073 Unit/500 Ml D5w) 25,000 units in 500 mls @ 16 mls/hr IV .Q24H SHERYL; Protocol Stop: 08/03/24 12:59 Last Titration: 07/04/24 19:11 Dose: 800 units/hr, 16 mls/hr Documented By: MARIBEL Co-signed By: MARCUS Admin: 07/04/24 13:49 Dose: 800 units/hr, 16 mls/hr Documented By: EVELIA Co-signed By: Sodium Chloride (Nss) 1,000 mls @ 125 mls/hr IV .Q8H SHERYL Stop: 07/05/24 12:44 Last Admin: 07/04/24 13:49 Dose: 125 mls/hr Documented By: EVELIA Piperacillin Sod/Tazobactam Sod (Zosyn) 4.5 gm in 100 mls @ 25 mls/hr IV Q8H SHERYL; Protocol Stop: 07/06/24 17:59 Last Admin: 07/04/24 17:21 Dose: 25 mls/hr Documented By: MARIBEL Insulin Aspart (Insulin Aspart Per Unit Charge) 0 units SC Q6 SHERYL Stop: 08/03/24 14:44 Last Admin: 07/04/24 18:35 Dose: 2 units Documented By: MARIBEL Co-signed By: TIFFANIE Admin: 07/04/24 15:05 Dose: Not Given Documented By: MARIBEL Discontinued Medications Calcitonin Buckner (Calcitonin Buckner 400 Units/2 Ml) 268 units SQ ONE STA Stop: 07/04/24 13:01 Last Admin: 07/04/24 15:16 Dose: 268 units Documented By: MARIBEL Doxycycline Hyclate (Doxycycline Hyclate 100 Mg Cap) 100 mg PO ONE STA Stop: 07/04/24 12:59 Last Admin: 07/04/24 13:48 Dose: 100 mg Documented By: EVELIA Heparin Sodium/Dextrose (Heparin Iv Adult Wt-Based Low-Dose *No* Initial Bolus Protocol) 1 each IV ONE STA; Protocol Stop: 07/04/24 12:46 Last Admin: 07/04/24 13:49 Dose: 1 each Documented By: EVELIA Piperacillin Sod/Tazobactam Sod (Zosyn) 4.5 gm in 100 mls @ 200 mls/hr IV ONE STA; Protocol Stop: 07/04/24 13:26 Last Infusion: 07/04/24 14:18 Dose: Infused Documented By: Admin: 07/04/24 13:48 Dose: 200 mls/hr Documented By: EVELIA Ioversol (Optiray 320 125ml) 118 ml IV ONCE ONE Stop: 07/04/24 13:40 Last Admin: 07/04/24 13:40 Dose: 118 ml Documented By: CELIA Code Status & VTE Plan Code Status FULL CODE - As per records provided by [facility]. Supervising Physician Co-Signing Physician Notes Patient is a 68-year-old male with history of diabetes mellitus, hypertension, hyperlipidemia, alcohol use, cognitive impairment/schizoaffective disorder and other medical problems was brought from correctional facility for altered mental status. Patient is a very poor historian. Most of the history is obtained from patient's record, ER staff. Record shows that patient has not been eating and drinking well lately with weight loss of about 40 pounds. He also was noted to have incontinence of bowel and bladder. Patient denied any change in vision, headache, chest pain, dyspnea, abd pain. He was also thought to have right facial droop and so sent to ED for further evaluation. Patient denied any headache, change in vision, difficulty swallowing. Please review HPI for complete details of presentation. I personally reviewed blood work and imaging studies. Noted lactic acidosis. COVID, influenza, RSV screen negative. Imaging studies suggestive metastatic lung disease with mediastinal lymphadenopathy. Also noted right upper lobe pulmonary emboli, numerous bilateral metastatic p ulmonary nodules with cavitation, right adrenal nodule. CTA head showed posterior parietal calvarial mass at the midline causing mass effect and narrowing of the adjacent posterior aspect of the sagittal sinus without occlusion. Physical Exam: Vitals signs as noted above General Appearance: Thin, ill-appearing, no apparent distress Head: normocephalic, Atraumatic Eyes: normal inspection, EOMI Neck: supple, Trachea midline Respiratory/Chest: Decreased breath sounds, CTA, No accessory muscle use Cardiovascular: S1, S2, No murmur, tachycardia Abdomen/GI:Soft, Non tender, Bowel sounds present Extremities/Musculoskeletal:normal inspection, no edema Neurologic/Psych:AAOX1, grossly moves all extremities., ?Facial droop, difficult to perform complete neurological exam due to patient's cognitive issues Skin: normal color, warm Metastatic lung cancer Right upper lobe pulmonary emboli Hypercalcemia Lactic acidosis likely due to malignancy, metformin use Pulmonary nodules Right adrenal nodule Acute metabolic encephalopathy likely multifactorial Oncology, radiation oncology consulted Palliative care consulted to address goals of care Started on calcitonin Workup for hypercalcemia Poor prognosis Speech eval MRI brain pending ED physician discussed the case with neurosurgery Started on IV heparin Urinalysis pending Empirically on Zosyn, Doxy for possible pneumonia Continue IV fluids Monitor calcium levels I personally interviewed and examined the patient at bedside. I have reviewed the advanced practitioner's documentation on the date of service referred in note and agree with plan. Patient's care is coordinated with Mamie Walter PA-C. Please refer to the documentation above for details of patient's presentation and for discussion of other issues. I spent a total [id number] coordinating, documenting, and providing care for this patient excluding time spent in the performance of separately billed services or time spent by another provider/QHP. (3) Pulmonary emboli Pulmonary embolism type: unspecified Chronicity: unspecified Acute cor pulmonale presence: unspecified Qualified Code(s): I26.99 - Other pulmonary embolism without acute cor pulmonale
[2024-07-04] MEDS ORDERED: GLUCOSE 10 TAB/TUBE PO PRN ×2 (13:36→14:57)
[2024-07-04] MEDS ORDERED: GLUCAGON FOR INJ 1 MG VIAL SQ PRN ×2 (13:36→14:57)
[2024-07-04] MEDS ORDERED: GLUCOSE 40% GEL 15 GM TUBE PO PRN ×2 (13:36→14:57)
[2024-07-04] MEDS ORDERED: CARBOHYDRATES FOR HYPOGLYCEMIA PO PRN ×2 (13:36→14:57)
[2024-07-04] MEDS ORDERED: DEXTROSE 50% 50 ML SYRINGE IV PRN ×2 (13:36→14:57)
[2024-07-04] MEDS: OPTIRAY 320 125ml IV ONE (13:40)
--- NOTE | 2024-07-04 13:42 | Radiation OncologyConsultation ---
Date of Consultation July 04, 2024 Assessment & Plan (1) Lung mass: Plan Assessment: Mr. Do is a 68-year-old gentleman with cognitive behavioral issues from the correctional facility who recently presented with altered mental status. The patient had imaging studies which suggested metastatic lung cancer with a right primary lung mass. Additionally, the patient was found to have pulmonary emboli. CT head imaging did reveal a lytic lesion involving the poste rior calvarium which could be consistent with metastatic disease. The patient provided minimal information regarding his history and symptoms. Plan: 1. No acute role for radiation therapy. We will continue to monitor and evaluate further diagnostic imaging studies. Palliative radiation therapy may have role in future depending on results of studies. 2. Complete staging workup including obtaining tissue with options including bronchoscopy with EBUS FNA. Additional consideration for biopsy of supraclavicular lymph node. MRI brain should be completed. 3. Medical oncology consultation ordered by primary team. 4. Palliative care consultation should be considered for this patient in the inpatient setting. 5. Continue other management as per primary medical team. 6. Please call us with any further questions or concerns regarding the care of this patient. History of Present Illness History of Present Illness 07/04/2024. Patient presents with altered mental status from correctional facility. 07/04/2024. CT C-spine. 1. No cervical spine fracture seen. 2. Partially visualized enlarged adenopathy at the upper mediastinum suspicious for malignancy. CT scan of the chest recommended. 07/04/2024. CT head. 1. No acute intracranial abnormality. 2. 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 Follow-up with oncology is needed. 07/04/2024. CT chest. 1. Emphysema with confirmation of the right upper lobe mass suggestive of primary bronchogenic carcinoma measuring up to 6.5 cm. This occludes the adjacent right upper lobe bronchi and encases the adjacent pulmonary vessels demonstrating probable mediastinal involvement. 2. Right upper lobe pulmonary emboli, possibly secondary to tumor thrombus 3. Metastatic mediastinal, right hilar and supraclavicular lymph nodes. 4. Numerous bilateral metastatic pulmonary nodules, many of which demonstrate central cavitation. 5. CT abdomen and pelvis dictated separately. 07/04/2024. CT of abdomen/pelvis. 1. Please see chest CT report of the same day. 2. Small nonspecific right adrenal nodule. No other evidence of metastatic disease seen at the abdomen or pelvis. 3. No acute findings seen. Otherwise as described. 07/04/2024. CTA head. Image results pending. 07/04/2024. Radiation oncology consultation. Inpatient. Complete diagnostic workup including biopsy of the primary pulmonary mass. MRI of the brain needed. Continue to follow-up diagnostic results. No role for radiation therapy this point. Palliative care consultation recommended. Allergies Allergy/AdvReac Type Severity Reaction Status Date / Time fluphenazine Allergy Unknown "On list Unverified 07/04/24 09:24 from facility" Home Medications Medication Instructions Recorded Confirmed Type aspirin 81 mg tablet,delayed 81 mg PO DAILY 07/04/24 07/04/24 History release gemfibrozil 600 mg tablet 600 mg PO BID 07/04/24 07/04/24 History glipizide 5 mg tablet 5 mg PO HS 07/04/24 07/04/24 History lisinopril 5 mg tablet 5 mg PO DAILY 07/04/24 07/04/24 History metformin 1,000 mg tablet 1,000 mg PO HS 07/04/24 07/04/24 History Patient History Medical History Cognitive impairment Schizoaffective disorder Alcohol use disorder Hyperlipidemia Type 2 diabetes mellitus Social History Smoking Status: Unknown if ever smoked Preferred Language: Ukrainian Feels Safe at Home: Yes Review of Systems Review of Systems: Patient unable to provide significant information. Physical Exam Physical Exam: Limited examination due to patient's performance status and mental status. Time Spent Attending I spent 20 minutes in preparation for this consultation including reviewing all the clinical records, reviewing laboratory studies, pathology reports and imagi ng results. I spent 20 minutes with direct face to face interaction with the patient and/or family including performing a physical exam and answering all questions. I spent 20 minutes documenting this patient's visit. PG Care Time/CCT Total # of Minutes Spent Total Time Spent with Patient: Total time spent is greater than 50% in coordination of care (as documented) at patient's floor/unit and/or counseling patient: [place] [address] IN/OBS CONSULT LVL 5,80M Patient Type New Medical Decision Making Moderate Complexity Diagnoses Lung mass R91.8
[2024-07-04] MEDS: PIPERACILLIN/TAZOBACTAM 4.5 GM/100 ML BAG IV STA (13:48)
[2024-07-04] MEDS: DOXYCYCLINE HYCLATE 100 MG CAP PO STA (13:48)
[2024-07-04] MEDS: Heparin IV Adult Wt-Based Low-Dose *NO* INITIAL Bolus Protocol IV STA (13:49)
[2024-07-04] MEDS: SODIUM CHLORIDE 0.9% 1,000 ML IV SCH (13:49)
[2024-07-04] MEDS: HEPARIN 25000 UNIT/500 ML D5W 25,000 UNITS/500 ML BAG IV SCH (13:49)
--- NOTE | 2024-07-04 13:57 | CT Scan Report ---
CT angio head wo/w CLINICAL HISTORY: Mass on head CT COMPARISON STUDY: Noncontrast CT earlier today FINDINGS: There are atherosclerotic calcifications distally at the internal carotid arteries. No sign ificant narrowing or occlusion seen at the distal internal carotid or vertebral arteries. The basilar artery is widely patent. The anterior, middle, and posterior cerebral arteries are patent bilaterall y. There is a 3 cm mass at the posterior parietal calvarium at the midline which causes mass effect o n the posterior aspect of the sagittal sinus and mild focal narrowing without occlusion. Otherwise th e cerebral venous sinuses opacify normally. IMPRESSION: 1. No significant arterial narrowing or occlusion seen at the brain. 2. Posterior parietal calvarial mass at the midline is again seen. The mass causes mass effect and na rrowing of the adjacent posterior aspect of the sagittal sinus without occlusion. ACT 112: Negative or not required by law. Electronically signed by: Brooks Garvin M.D. 07/04/2024 1:56 PM
[2024-07-04] MEDS ORDERED: ACETAMINOPHEN 325 MG TAB PO PRN (14:57)
[2024-07-04] MEDS ORDERED: PROMETHAZINE 6.25 MG/50.25 ML BAG IV PRN (14:57)
[2024-07-04] MEDS ORDERED: PHARMACY GLYCEMIC MGMT CONSULT PRN (14:57)
[2024-07-04] MEDS ORDERED: MAGNESIUM HYDROXIDE SUSP 30 ML UDC PO PRN (14:57)
[2024-07-04] MEDS ORDERED: LEVALBUTEROL HCL 0.63 MG/3 ML NEB NEB PRN (14:57)
[2024-07-04] MEDS ORDERED: POLYETHYLENE (MIRALAX) 17 GM PACK PO PRN (14:57)
[2024-07-04] MEDS: INSULIN ASPART PER UNIT CHARGE SC SCH (15:05)
[2024-07-04] MEDS: CALCITONIN SALMON 400 UNITS/2 ML SQ STA (15:16)
[2024-07-04] MEDS ORDERED: INSULIN ASPART PER UNIT CHARGE SC SCH ×2 (16:30)
--- NOTE | 2024-07-04 16:52 | Oncology Consultation ---
Date of Consultation July 04, 2024 Assessment & Plan (1) Lung mass: (2) Acute alteration in mental status: (3) Pulmonary embolism: Plan Gentleman with likely stage IV lung cancer who presented with altered mental status. Imaging suggestive of extensive metastasis. -Given altered mental status, would be important to establish next of kin as patient does not have capacity to make decisions. -Recommend palliative care involvement to discuss goals of care with patient/next of kin given extensive nature of disease -If systemic therapy will be pursued after discussion with [facility], recommend biopsy to confirm diagnosis/subtype of metastatic lung cancer as this will determine treatment options.He will also need brain MRI which can be obtained inpatient . PET/CT will be obtained outpatient -Regarding PE, okay to proceed with anticoagulation. Would recommend therapeutic heparin since he may need biopsy in the near future. History of Present Illness Reason for Consultation: C/f primary bronchogenic CA with metastases Attending Physician: Nehemias Brower MD History of Present Illness 68-year-old gentleman from inmate from [facility] who presented with altered mental status and s/p fall. CT cervical spine revealed partially visualized enlarged adenopathy at the upper mediastinum suspicious for malignancy, CT chest revealed right upper lobe mass versus dense focal pneumonia as well as possible small right pleural effusion and consolidation at the right lung base. CT head revealed erosive soft tissue attenuating extra-axial mass of the midline posterior parietal calvarium. CT chest, abdomen and pelvis revealed emphysema with confirmation of right upper lobe mass suggestive of primary bronchogenic carcinoma measuring up to 6.5 cm occluding the adjacent right upper lobe bronchi and encasing the adjacent pulmonary vessels demonstrating probable mediastinal involvement, right upper lobe pulmonary emboli possibly secondary to tumor thrombus, metastatic mediastinal, right hilar and supraclavicular lymph nodes as well as numerous bilateral metastatic pulmonary nodules many of which demonstrate central cavitation. CTA head revealed posterior parietal calvarial mass at the midline causing mass effect and narrowing of adjacent posterior aspect of the sagittal sinus without occlusion. Allergies Allergy/AdvReac Type Severity Reaction Status Date / Time fluphenazine Allergy Unknown "On list Unverified 07/04/24 09:24 from facility" Home Medications Medication Instructions Recorded Confirmed Type aspirin 81 mg tablet,delayed 81 mg PO DAILY 07/04/24 07/04/24 History release gemfibrozil 600 mg tablet 600 mg PO BID 07/04/24 07/04/24 History glipizide 5 mg tablet 5 mg PO HS 07/04/24 07/04/24 History lisinopril 5 mg tablet 5 mg PO DAILY 07/04/24 07/04/24 History metformin 1,000 mg tablet 1,000 mg PO HS 07/04/24 07/04/24 History Patient History Medical History Cognitive impairment Schizoaffective disorder Alcohol use disorder Hyperlipidemia Type 2 diabetes mellitus Social History Smoking Status: Unknown if ever smoked Hx Alcohol Use: No Hx Substance Use: No Preferred Language: Algerian Communication Ability: Effective Manager Social Services Required: No Beliefs That Will Affect Care: None Current Living Situation: Other Current Living Situation Comment: [facility] inmate Feels Safe at Home: Declines to Answer Results & Data Vital Signs (Past 12 Hours) Vital Signs Temp Pulse Pulse Resp BP BP Pulse Ox 07/04/24 15:22 86 07/04/24 15:13 36.4 C L 92 H 18 128/88 100 07/04/24 14:28 07/04/24 12:12 86 28 H 117/84 94 07/04/24 11:30 86 18 119/85 99 07/04/24 11:15 79 24 111/82 100 07/04/24 10:45 78 133/85 96 07/04/24 10:30 91 H 18 123/91 95 07/04/24 10:15 77 26 H 128/91 97 07/04/24 10:00 99 H 18 116/91 96 07/04/24 09:45 98 H 18 118/101 H 97 07/04/24 09:30 96 H 18 117/87 96 07/04/24 09:30 117/87 07/04/24 09:30 117/87 07/04/24 09:30 117/87 07/04/24 09:30 98 H 17 07/04/24 09:17 98 H 20 129/92 95 07/04/24 08:58 108 H 96 07/04/24 08:54 07/04/24 08:54 106 H 20 106/92 96 07/04/24 08:54 07/04/24 08:52 103 H 07/04/24 08:22 36.1 C L 106 H 17 108/81 98 O2 Del Method 07/04/24 15:22 07/04/24 15:13 Room Air 07/04/24 14:28 Room Air 07/04/24 12:12 Room Air 07/04/24 11:30 Room Air 07/04/24 11:15 Room Air 07/04/24 10:45 Room Air 07/04/24 10:30 Room Air 07/04/24 10:15 Room Air 07/04/24 10:00 Room Air 07/04/24 09:45 Room Air 07/04/24 09:30 Room Air 07/04/24 09:30 07/04/24 09:30 07/04/24 09:30 07/04/24 09:30 07/04/24 09:17 Room Air 07/04/24 08:58 Room Air 07/04/24 08:54 Room Air 07/04/24 08:54 Room Air 07/04/24 08:54 Room Air 07/04/24 08:52 07/04/24 08:22 Room Air
[2024-07-04] MEDS: PIPERACILLIN/TAZOBACTAM 4.5 GM/100 ML BAG IV SCH (17:21)
[2024-07-04 20:46] LABS: ANTI-Xa, UFH(UnfractionatedHep < 0.10 IU/ml (0.3-0.7)
[2024-07-04] MEDS ORDERED: LANTUS PER UNIT CHARGE SQ SCH (21:00)
[2024-07-04] MEDS: LANTUS PER UNIT CHARGE SC SCH (21:39)
[2024-07-04] MEDS: HEPARIN SOD (PORCINE) 1000 UNIT/ML IV ONE (21:50)
[2024-07-04] MEDS: DOXYCYCLINE HYCLATE 100 MG in DEXTROSE 5% MINI-B 100 ML IV SCH (21:50)
[2024-07-04 21:54] LABS: Appearance Urine Clear (Clear); Bacteria Urine Automated None Seen (None Seen); Bilirubin Urine Negative (Negative); Blood Urine Negative (Negative); Cast Urine Automated 0-2 /lpf (0-2); Color Urine Yellow; Epithelial Cell Urine Auto 0-2 /hpf (0-2); Glucose Urine UA Trace (Negative); Ketones Urine 1+ (Negative); Leukocyte Esterase Urine Negative (Negative); Nitrite Urine Negative (Negative); Protein Urine Trace (Negative); RBC Urine Automated 0-2 /hpf (0-2); Specific Gravity Urine > 1.045 (1.000-1.030); Urobilinogen Urine Negative (Negative); WBC Urine Automated 0-5 /hpf (0-5); pH Urine 5.5 (4.5-7.5)
[2024-07-04] MEDS: gemfibroziL 600 MG TAB PO SCH (22:03)
[2024-07-04] MEDS: DOXYCYCLINE HYCLATE 100 MG CAP PO SCH (22:23)
[2024-07-04] MEDS: GADOBUTROL 65ML VIAL IV ONE (22:53)
--- NOTE | 2024-07-05 02:20 | Magnetic Resonance Report ---
Exam(s): MRI HEAD W/WO Contrast IV Amt: 6.5 gadavist EXAM: MR Head Without and With Intravenous Contrast CLINICAL HISTORY: Reason for exam: Mass on head CT. TECHNIQUE: Magnetic resonance images of the head/brain without and with intravenous contrast in multiple planes. CONTRAST: Patient received 6.5 gadavist of IV contrast COMPARISON: No relevant prior studies available. FINDINGS: Brain: There is a tiny acute/subacute ischemic injury in the right frontal lobe without evidence of hemorrhagic transformation. Moderate nonspecific white matter changes. No mass. No hemorrhage. The flow voids at the base the brain are intact. No evidence of abnormal parenchymal enhancement. The dural venous sinuses are patent. Ventricles: Mild ventriculomegaly. Bones/joints: There is an Erosive partially enhancing soft tissue mass in the parasagittal posterior calvarium measuring 30.1 x 25.5 x 21.7 mm with extension into the epidural space. No acute fracture. Sinuses: Unremarkable as visualized. No acute sinusitis. Mastoid air cells: Unremarkable as visualized. No mastoid effusion. Orbits: Unremarkable as visualized. IMPRESSION: There is an erosive partially enhancing soft tissue mass in the parasagittal posterior calvarium measuring 30.1 x 25.5 x 21.7 mm with extension into the epidural space concerning for neoplasm. Findings concerning for a tiny acute/subacute ischemic injury of the right frontal lobe without evidence of hemorrhagic transformation. Communications: Verify Receipt Electronically signed by: Lilly Velázquez MD 07/05/24 02:19 AM
[2024-07-05] MEDS ORDERED: PHARMACIST DISCHARGE MED REC CONSULT PRN (02:26)
[2024-07-05 05:17] LABS: Basophils # (auto) 0.02 K/uL (0.00-0.20); Basophils % (auto) 0.2 %; Eosinophils # (auto) 0.02 K/uL (0.00-0.50); Eosinophils % (auto) 0.2 %; Hematocrit (blood only) 35.8 % (42.0-52.0); Immature Granulocytes # (auto) 0.06 K/uL (0.01-0.20); Immature Granulocytes % (auto) 0.5 %; Lymphocytes # (auto) 1.82 K/uL (1.20-3.40); Lymphocytes % (auto) 16.1 %; Mean Corpuscular Hemoglobin 27.6 pg (25.0-34.0); Mean Corpuscular Hgb Conc 33.5 g/dL (32.0-36.0); Mean Corpuscular Volume 82.5 fL (80.0-100.0); Mean Platelet Volume 8.2 fL (9.4-12.4); Monocytes # (auto) 0.88 K/uL (0.11-0.59); Monocytes % (auto) 7.8 %; Neutrophils # (auto) 8.53 K/uL (1.40-6.50); Neutrophils % (auto) 75.2 %; Platelet Count 353 K/uL (130-400); RDW Standard Deviation 47.7 fL (36.4-46.3); Red Blood Count 4.34 M/uL (4.70-6.10); White Blood Count 11.33 K/ul (4.8-10.8)
[2024-07-05 05:37] LABS: Albumin Level 3.3 gm/dl (3.4-5.0); BUN Creatinine Ratio 15.2 (10-20); Bilirubin,Total 0.6 mg/dl (0.2-1.0); Calcium 9.4 mg/dl (8.6-10.3); Chol HDL Ratio 3.5 (0-5); Creatinine Clr Calc Pharmacy 82.4 ml/min; Globulin 3.4 gm/dl (2.5-4.0); Magnesium 1.9 mg/dl (1.7-2.4); Potassium 3.5 mmol/L (3.5-5.1); Total Protein 6.7 gm/dl (6.0-8.3)
[2024-07-05] MEDS: CALCITONIN SALMON 400 UNITS/2 ML SQ SCH (06:04)
[2024-07-05 06:06] LABS: ANTI-Xa, UFH(UnfractionatedHep 0.49 IU/ml (0.3-0.7)
[2024-07-05 07:09] LABS: Estimated Average Glucose 206 mg/dl; Hemoglobin A1C 8.8 % (4.5-5.6)
[2024-07-05] MEDS: dexAMETHasone 4 MG in SYRINGE 0 ML IV ONE (09:36)
[2024-07-05] MEDS: PNEUMOCOCCAL VACCINE (PCV20) 20-VAL CONJ-DIP CRM/PF 0.5 ML SYR IM ONE (09:36)
[2024-07-05] MEDS: INFLUENZA VACC TS2024-25(65y+)/PF (IIV3) 0.5mL Syr IM ONE (09:36)
[2024-07-05] MEDS: lisinopril 5 MG TAB PO SCH (09:37)
[2024-07-05] MEDS: ASPIRIN 81 MG ECTAB PO SCH (09:37)
--- NOTE | 2024-07-05 09:39 | Pharmacy Report ---
Pharmacy Glycemic Short Note 2 - Date of Service July 05, 2024 - Glycemic Short BSG Results (Last 24 hours): 07/04/24 07/04/24 07/04/24 08:41 14:49 18:18 Glucose 208 H POC Glucose 164 H 200 H 07/04/24 07/05/24 07/05/24 20:33 00:29 04:53 Glucose 147 H POC Glucose 192 H 211 H 07/05/24 05:58 Glucose POC Glucose 160 H OUTPATIENT ANTIDIABETIC REGIMEN: * Metformin 1000 mg PO HS * Glipizide 5 mg PO HS A1c = 8.8% ASSESSMENT: * Daren is 68 yo T2DM with PMHx significant for cognitive impairment, HLD, HTN and schizoaffective bipolar disorder. He was brought to the ER due to concerns of AMS, weight loss and questionable right-sided facial drooping. Found to have metastatic lung CA, pulmonary embolism, and small subacute stroke likely secondary to hypercoagulable state. * Patient has been started on high dose IV steroids, DXM 4 mg IV BID. * Currently BSG is near goal, however anticipate patient to experience steroid induced hyperglycemia moving forward (especially if diet is resumed). Will tighten CF/CR and increase basal insulin scale. Will also be cautious with dose adjustments in the setting of probably stroke, AMS and NPO status. PLAN FOR INPATIENT GLYCEMIC CONTROL: * Hold outpatient oral diabetes medications * Basal insulin * Lantus 0-10-15 units SQ BID (0 units for BSG < 140, 10 units for BSG 140- 200, 15 units for BSG > 200) * Bolus insulin * NovoLog per scale ACHS or Q6hrs while NPO * Goal Range: Low 120 mg/dL - High 150 mg/dL * Correction Factor: 25 mg/dL/unit * Nutritional / Prandial insulin per carb ratio of 1 unit per 10 grams CHO consumed
--- NOTE | 2024-07-05 11:43 | Neurology Consultation ---
Date of Consultation July 05, 2024 Assessment & Plan (1) Lung mass: Daren Do is a 68 yo M presenting with metastatic lung CA, small subacute stroke seen on MRI likely secondary to hypercoagulable state. Agree with hospice. No further workup recommended. Please contact us with any additional questions. Telehealth Consultation Telehealth Information Telehealth Information: I performed this visit using a real-time telehealth connection between my location and the patients location ([facility]). After connecting through interactive tele-video, patient was identified by name and d ate of and/or wristband check.Patient (or authorized healthcare route service representative) was informed that this was a telemedicine visit and it was being conducted confidentially over secure lines. My office door was closed and no one else was present in the room with me.Patient (or authorized healthcare route service representative) provided consent to proceed with the visit, expressed an understanding of privacy and security of the telemedicine visit, and gave permission to have a hospital route service representative in the room in order to assist with the visit and to conduct portions of the visit, as needed. I informed the patient (or authorized healthcare route service representative) that I reviewed their record and presented the opportunity for them to ask any questions regarding the visit today. The patient agreed to participate. History of Present Illness Reason for Consultation: Stroke Requesting Physician: Dr. Chao Attending Physician: Braxton Chao MD History of Present Illness Daren Do is a 68 yo M presenting with anorexia and increased confusion from group home. He reports that he has stopped eating because the food is not appetizing. He complains of a painful lump on his head and thought it was due to hitting his head in that area. He has poor insight into the metastatic disease found during this admission in workup of his complaints. Denies any focal weakness or numbness otherwise. Allergies Allergy/AdvReac Type Severity Reaction Status Date / Time fluphenazine Allergy Unknown "On list Unverified 07/04/24 09:24 from facility" Home Medications Medication Instructions Recorded Confirmed Type aspirin 81 mg tablet,delayed 81 mg PO DAILY 07/04/24 07/04/24 History release gemfibrozil 600 mg tablet 600 mg PO BID 07/04/24 07/04/24 History glipizide 5 mg tablet 5 mg PO HS 07/04/24 07/04/24 History lisinopril 5 mg tablet 5 mg PO DAILY 07/04/24 07/04/24 History metformin 1,000 mg tablet 1,000 mg PO HS 07/04/24 07/04/24 History Patient History Medical History (Updated 07/04/24 @ 20:21 by Mamie Walter PA-C) Cognitive impairment Schizoaffective disorder Alcohol use disorder Hyperlipidemia Type 2 diabetes mellitus Social History Smoking Status: Unknown if ever smoked Hx Alcohol Use: No Hx Substance Use: No Preferred Language: Japanese Communication Ability: Effective Disability Counselor Required: No Beliefs That Will Affect Care: None Current Living Situation: Other Current Living Situation Comment: [facility] inmate Feels Safe at Home: Declines to Answer Review of Systems +confusion Physical Exam Neurological Examination: Mental Status: Awake and alert. Oriented to person only. Fluent with significant dysarthria. Comprehension intact. Affect appropriate. Cranial Nerves: II: Reads NIHSS cards, pupils 3/3 to 2/2, anderson grossly intact. III/IV/: Versions intact without nystagmus, no gaze preference. VII: Facial expression symmetric Motor: Strength was symmetric and antigravity throughout. Pronator drift was absent. There were no abnormal movements. Reflexes: Unable to assess over telemedicine Results & Data Vital Signs (Past 12 Hours) Vital Signs Temp Pulse Pulse Resp BP Pulse Ox O2 Del Method 07/05/24 11:19 36.4 C L 57 L 18 126/75 98 Room Air 07/05/24 08:00 Room Air 07/05/24 07:38 36.3 C L 66 18 108/68 98 Room Air 07/05/24 03:39 72 18 131/78 97 Room Air 07/05/24 00:46 97 H Laboratory Results Abnormal lab results 07/04/24 07/04/24 07/04/24 Range/Units 14:49 18:18 19:58 WBC (4.8-10.8) K/ul RBC (4.70-6.10) M/uL Hgb (14.0-18.0) g/dl Hct (42.0-52.0) % RDW Std Deviation (36.4-46.3) fL RDW Coeff of Angel (11.5-14.5) % MPV (9.4-12.4) fL Neut # (Auto) (1.40-6.50) K/uL [place] # (Auto) (0.11-0.59) K/uL Heparin Anti-Xa, Unfract < 0.10 L (0.3-0.7) IU/ml Chloride (98-107) mmol/L Glucose (70-99(Fasting)) mg/dl POC Glucose 164 H 200 H (70-99) mg/dl Hemoglobin A1c (4.5-5.6) % Alkaline Phosphatase (34-104) U/L Albumin (3.4-5.0) gm/dl 25-OH Vitamin D Total (30-100) ng/ml Ur Specific [place] (1.000-1.030) Urine Protein (Negative) Urine Glucose (UA) (Negative) Urine Ketones (Negative) 07/04/24 07/04/24 07/05/24 Range/Units 20:33 21:40 00:29 WBC (4.8-10.8) K/ul RBC (4.70-6.10) M/uL Hgb (14.0-18.0) g/dl Hct (42.0-52.0) % RDW Std Deviation (36.4-46.3) fL RDW Coeff of Angel (11.5-14.5) % MPV (9.4-12.4) fL Neut # (Auto) (1.40-6.50) K/uL [place] # (Auto) (0.11-0.59) K/uL Heparin Anti-Xa, Unfract (0.3-0.7) IU/ml Chloride (98-107) mmol/L Glucose (70-99(Fasting)) mg/dl POC Glucose 192 H 211 H (70-99) mg/dl Hemoglobin A1c (4.5-5.6) % Alkaline Phosphatase (34-104) U/L Albumin (3.4-5.0) gm/dl 25-OH Vitamin D Total (30-100) ng/ml Ur Specific [place] > 1.045 H (1.000-1.030) Urine Protein Trace H (Negative) Urine Glucose (UA) Trace H (Negative) Urine Ketones 1+ H (Negative) 07/05/24 07/05/24 Range/Units 04:53 05:58 WBC 11.33 H (4.8-10.8) K/ul RBC 4.34 L (4.70-6.10) M/uL Hgb 12.0 L (14.0-18.0) g/dl Hct 35.8 L (42.0-52.0) % RDW Std Deviation 47.7 H (36.4-46.3) fL RDW Coeff of Angel 16.0 H (11.5-14.5) % MPV 8.2 L (9.4-12.4) fL Neut # (Auto) 8.53 H (1.40-6.50) K/uL [place] # (Auto) 0.88 H (0.11-0.59) K/uL Heparin Anti-Xa, Unfract (0.3-0.7) IU/ml Chloride 112 H (98-107) mmol/L Glucose 147 H (70-99(Fasting)) mg/dl POC Glucose 160 H (70-99) mg/dl Hemoglobin A1c 8.8 H (4.5-5.6) % Alkaline Phosphatase 111 H (34-104) U/L Albumin 3.3 L (3.4-5.0) gm/dl 25-OH Vitamin D Total 8.5 L (30-100) ng/ml Ur Specific [place] (1.000-1.030) Urine Protein (Negative) Urine Glucose (UA) (Negative) Urine Ketones (Negative) Diagnostic Findings MRI brain - tiny focal stroke, subacute.
[2024-07-05] MEDS: LANTUS PER UNIT CHARGE SC ONE (12:30)
[2024-07-05] MEDS ORDERED: MoRPHine SULFATE 2 MG/ML CARP IV PRN (12:39)
[2024-07-05] MEDS ORDERED: LORazepam 2 MG/1 ML VIAL IV PRN (12:39)
[2024-07-05] MEDS ORDERED: ONDANSETRON INJ 2 MG/ML 2 ML VIAL IV PRN (12:39)
--- NOTE | 2024-07-05 16:25 | Hospitalist Progress Note ---
Date of Service July 05, 2024 Assessment & Plan (1) Lung mass: Plan: -see above, long discussion of GOC with sister and correctional facility -hypercalcemia, brain metastasis, significant underlying mental health diagnoses, cachexia all concerning for poor prognosis -prognosis likely on scale of weeks to months -focus on comfort at this time per GOC discussion with sister Plan: -comfort focused care initiated -morphine for pain -ativan for agitation -zofran for nausea/vomiting -mouth/eye care ordered -4mg IV bid decadron to decrease cerebral edema, transition to prednisone for use at [facility] indefinitely -appreciate medical oncology and radiation oncology consults and assistance (2) Acute alteration in mental status: Plan: -2/2 metabolic encephalopathy from brain met and significant underlying mental health issues -see above (3) Pulmonary emboli: Plan: -was on heparin -discussed with sister, will hold off on further anticoagulation at this time given goal of comfort (4) Hypercalcemia: Plan: -see above Plan I spent a total of 50 minutes in direct patient care, including [id number] time with the patient and/or family, reviewing medical records, ordering and reviewing diagnostic tests, and coordinating care with other healthcare providers. This time includes: history taking, physical examination, medical decision making, counseling, ECG interpretation, imaging interpretation, lab in terpretation, orders, and education, excluding time spent in the performance of separately billed services. I spent a total of 60 minutes providing advanced care planning to the patient and/or family, including [id number] time discussing the patient's health status, prognosis, and treatment options. This time includes specific activities such as: discussing advance directives, goals of care, prognostication, and end-of-life planning. Admission and Anticipated Discharge Date Admission Date: July 04, 2024 Subjective Patient seen and examined at bedside. Patient not doing well today. Patient is altered, alert to name, partially location, not time, very confused at this time. When asked, he states he would like his sister to make decisions for him if he is unable to. States he has some pain in the back of his head. Unable to answer other questions due to mental status. [facility] minutes spent discussing goals and values with sister, correctional facility. Discussed findings of primary lung mass with metastasis to brain with patient. Patient unable to comprehend information. Called correctional facility and talk to district medical examiner, who recommended reaching out to sister who is power of trust and estates attorney and next of kin. Called [facility], , at phone number provided by correctional facility. 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 Discussed that patient's mental status is poor due to mass effect from intracranial mass. Patient presented with hypercalcemia, which is a poor prognostic indicator. When asked by sister, this provider given hypercalcemia, cachexia, mental status, intracranial mets, estimate the prognosis is on the scale of weeks to months. Discussed the patient would be unable to tolerate or be able to adequately cooperate with chemotherapy or radiation. Discussed that radiation oncology and medical oncology were consulted and offered recommendations. 2 options were discussed with sister, 1 option being pursuing a biopsy with hope of pursuing treatment for the underlying malignancy. Discussed that this is unlikely to meaningfully prolong his life and may actually be more harmful than good given overall clinical picture. Other option discussed was comfort focused care and hospice. Sister states he would not want to suffer and would like to focus on comfort at this time discussed resuscitation at length, risks and benefits explained. Sister would like him to be DNR/DNI with comfort focused care, and pursue hospice placement at this time. Discussed that I will discuss with correctional facility regarding next steps in regards to hospice. Review of Systems Review of Systems: -unable to answer due to mental status Physical Exam Physical Exam: Gen: A&O 1 NAD HEENT: NCAT, EOMI, not icteric. External ears normal. No rhinorrhea. Moist mucous membranes. Neck: Supple, full range of motion, no observable masses, No meningeal sign. Lungs: rhonchi noted throughout lung anderson CV: RRR, no edema. Abdomen: Soft, nondistended, No rebound tenderness. MSK: No joint swelling, no redness. Skin: No rashes, petechiae, lesions. Normal color per patient. Neuro: Normal Gait, Grossly intact. Psych: Appropriate for situation. Results & Data Results & Data Vital Signs (Past 12 Hours) Vital Signs Temp Pulse Resp BP Pulse Ox O2 Del Method 07/05/24 16:10 36.6 C 66 18 131/78 98 Room Air 07/05/24 11:19 36.4 C L 57 L 18 126/75 98 Room Air 07/05/24 08:00 Room Air 07/05/24 07:38 36.3 C L 66 18 108/68 98 Room Air (3) Pulmonary emboli Pulmonary embolism type: unspecified Chronicity: unspecified Acute cor pulmonale presence: unspecified Qualified Code(s): I26.99 - Other pulmonary embolism without acute cor pulmonale
[2024-07-05] MEDS ORDERED: Nursing to Pharmacy Communication SCH (17:00)
[2024-07-05] MEDS: INSULIN ASPART PER UNIT CHARGE SC SCH (17:42)
[2024-07-05] MEDS: LANTUS PER UNIT CHARGE SC SCH (20:56)
[2024-07-05] MEDS ORDERED: INSULIN ASPART PER UNIT CHARGE SC SCH (21:00)
[2024-07-05] MEDS: dexAMETHasone 4 MG in SYRINGE 0 ML IV SCH (21:47)
--- NOTE | 2024-07-06 13:34 | Hospitalist Progress Note ---
Date of Service July 06, 2024 Assessment & Plan (1) Lung mass: Plan: -see above, long discussion of GOC with sister and correctional facility -hypercalcemia, brain metastasis, significant underlying mental health diagnoses, cachexia all concerning for poor prognosis -prognosis likely on scale of weeks to months -focus on comfort at this time per GOC discussion with sister -mentation improved after stress dose steroids, likely reflective of mass effect improvement Plan: -comfort focused care initiated -morphine for pain -ativan for agitation -zofran for nausea/vomiting -mouth/eye care ordered -4mg IV bid decadron to decrease cerebral edema, transition to prednisone for use at shelter indefinitely, patient likely to refuse -appreciate medical oncology and radiation oncology consults and assistance (2) Acute alteration in mental status: Plan: -2/2 metabolic encephalopathy from brain met and significant underlying mental health issues -see above (3) Pulmonary emboli: Plan: -was on heparin -discussed with sister, will hold off on further anticoagulation at this time given goal of comfort (4) Hypercalcemia: Plan: -see above Plan I spent a total of 40 minutes in direct patient care, including [id number]-ic-[id number] time with the patient and/or family, reviewing medical records, ordering and reviewing diagnostic tests, and coordinating care with other healthcare providers. This time includes: history taking, physical examination, medical decision making, counseling, ECG interpretation, imaging interpretation, lab interpretation, orders, and education, excluding time spent in the performance of separately billed services. Admission and Anticipated Discharge Date Admission Date: July 04, 2024 Subjective Patient seen and examined at bedside. Patient is more oriented today but still not decisional overall. He states he does not want steroids and just wants to be left alone at this time. Does understand he has end stage malignancy of unknown primary (lung cancer). Review of Systems Review of Systems: -unable to answer due to mental status Physical Exam Physical Exam: Gen: A&O 1-2 NAD HEENT: NCAT, EOMI, not icteric. External ears normal. No rhinorrhea. Moist mucous membranes. Neck: Supple, full range of motion, no observable masses, No meningeal sign. Lungs: rhonchi noted throughout lung anderson CV: RRR, no edema. Abdomen: Soft, nondistended, No rebound tenderness. MSK: No joint swelling, no redness. Skin: No rashes, petechiae, lesions. Normal color per patient. Neuro: right facial droop, mentation improved from prior Results & Data Results & Data Vital Signs (Past 12 Hours) Vital Signs O2 Del Method 07/06/24 08:15 Room Air (3) Pulmonary emboli Pulmonary embolism type: unspecified Chronicity: unspecified Acute cor pulmonale presence: unspecified Qualified Code(s): I26.99 - Other pulmonary embolism without acute cor pulmonale
--- NOTE | 2024-07-07 12:03 | Discharge Summary ---
Discharge Summary Date of Service July 07, 2024 Principal Dx & Hospital Course #1 = Principal Diagnosis (1) Lung mass: -see above, long discussion of GOC with sister and correctional facility -hypercalcemia, brain metastasis, significant underlying mental health diagnoses, cachexia all concerning for poor prognosis -prognosis likely on scale of weeks to months -focus on comfort at this time per GOC discussion with sister -mentation improved after stress dose steroids, likely reflective of mass effect improvement Plan: -comfort focused care initiated -discharge to [facility] recs: -roxanol 5mg q4hr prn (not needed initially, as patient is not symptomatic) for pain -oxygen prn -bisacodyl suppository (or any other enema/suppository avaliable) prn -haldol 1mg PO q8hr prn or ativan 1 mg PO q4hr prn for agitation -if patient will take, prednisone 40 mg daily or decadron 4mg daily for cerebral edema (2) Acute alteration in mental status: -2/2 metabolic encephalopathy from brain met and significant underlying mental health issues -see above (3) Pulmonary emboli: -was on heparin -discussed with sister, will hold off on further anticoagulation at this time given goal of comfort (4) Hypercalcemia: -see above Notes For Next Care Provider Daren Lopez is a 68y/o M inmate from [facility] with PMHx significant for cognitive impairment in the setting of prior alcohol use disorder, DM type II, HLD, HTN and schizoaffective bipolar disorder who was brought in today with corrections staff due to concerns regarding AMS, weight loss and questionable right-sided facial drooping. Found to have brain mass, admitted to medicine. further imaging revealed likely lung malignancy. Radiation and medical oncology consulted, recommended goals of care discussion. See prior documentation, sister and patient decided on comfort focused approach. Patient refused steroids for vasogenic edema from mass. Required no pain medications or symptom medications while admitted. On 07/07/2024 patient medically stable for discharge from the hospital. Medication Changes From Visit -see above. Admission HPI Per Admitting Provider Daren Lopez is a 68y/o M inmate from [facility] with PMHx significant for cognitive impairment in the setting of prior alcohol use disorder, DM type II, HLD, HTN and schizoaffective bipolar disorder who was brought in today with corrections staff due to concerns regarding AMS, weight loss and questionable right-sided facial drooping. Unable to elicit any meaningful history from the patient due to his underlying cognitive impairment. He is alert and oriented only to self. History therefore obtained from documentation provided by [facility] and discussion with ED provider. Patient with altered mental status from baseline and reportedly not "acting like himself." Records show patient has not been eating or drinking well lately with approximately loss of about 40lbs over the past few months. Also noted to have with bowel and bladder incontinence. Having some difficulty following questions and has been found walking around aimlessly in his housing unit. Has been refusing his medications and lab draws. His gait also appears to be "out of the norm" per records. No recently recorded falls or trauma. Also was thought to have a slight right-sided facial droop however unsure of the chronicity regarding this. Discharge Exam Gen: A&O 1 NAD HEENT: NCAT, EOMI, not icteric. External ears normal. No rhinorrhea. Moist mucous membranes. Neck: Supple, full range of motion, no observable masses, No meningeal sign. Lungs: rhonchi noted throughout lung anderson CV: RRR, no edema. Abdomen: Soft, nondistended, No rebound tenderness. MSK: No joint swelling, no redness. Skin: No rashes, petechiae, lesions. Normal color per patient. Neuro: right facial droop, mentation improved from prior Updated Medication List Medication Instructions Recorded Confirmed Type aspirin 81 mg tablet,delayed 81 mg PO DAILY 07/04/24 07/04/24 History release metformin 1,000 mg tablet 1,000 mg PO HS 07/04/24 07/04/24 History Hospital Stay Data Consultations 07/04/24 12:22 ED Decision to Admit Stat 07/04/24 12:43 Consult Oncology Routine Consult Radiation Oncology Routine 07/05/24 08:00 Consult Neurology Routine Diagnostic Imagining Performed 07/04/24 08:40 CT cervical spine wo con Stat CT head/brain wo con Stat 07/04/24 10:10 CT abd pelvis IV con only Stat CT chest diagnostic w con Stat 07/04/24 12:46 CTA head wo/w [CT angio head wo/w] Stat MR brain wo/w con Stat Pending Results Patient Have Any Pending Studies at Discharge: No Discharge Instructions Given to Patient (Per Discharging Provider) 1. Patient is going back to [facility] on comfort care. 2. Recommendations for medication management will be listed in discharge summary. Total Time Total Time Spent Total Time Spent (In Minutes): I spent a total of 35 minutes in direct patient care, including [id number] time with the patient and/or family, reviewing medical records, ordering and reviewing diagnostic tests, and coordinating care with other healthcare providers. This time includes: history taking, physical examination, medical decision making, counseling, ECG interpretation, imaging interpretation, lab interpretation, orders, and education, excluding time spent in the performance of separately billed services.
--- NOTE | 2024-07-07 13:22 | Electrocardiogram Report ---
Test Reason : Blood Pressure : */* mmHG Vent. Rate : 103 BPM Atrial Rate : 103 BPM P-R Int : 154 ms QRS Dur : 140 ms QT Int : 360 ms P-R-T Axes : 27 210 25 degrees QTcB Int : 471 ms Sinus tachycardia with Premature atrial complexes Possible Left atrial enlargement Right bundle branch block Septal infarct (cited on or before 04-Jul-2024) Abnormal ECG When compared with ECG of 04-Jul-2024 08:39, Left anterior fascicular block is no longer Present Serial changes of Septal infarct Present Suspect arm lead reversal, interpretation assumes no reversal Confirmed by Vanessa Nicolas ([id number]) on 07/07/2024 1:22:46 PM Referred By: [facility] Confirmed By: Vanessa Nicolas
== END 2024-07-07 12:30 | DRG 180 ==
LOC: ED 08:20 → 2S 12:41 → SUATTDRO 12:41 → 2S 14:28 → 3E 07-05 16:36